=== PATIENT | male | born 1980 | race American Indian/Alaskan Native ===

== ENCOUNTER 2016-10-01 17:11 | Emergency (ER) | payer SELFPAY | END 2016-10-01 17:30 | disposition left against medical advice (07) | LOC: ED 17:11 | DX: R07.89 Other chest pain (principal); Z53.21 Procedure and treatment not carried out due to patient leaving prior to being seen by health care provider | CPT/HCPCS: 93005; 93010 ==

== ENCOUNTER 2016-10-03 12:21 | Emergency (ER) | payer SELFPAY ==
[2016-10-03] MEDS ORDERED: DUONEB 0.5 MG-3 MG/3 ML SOLN IH ONE (13:53)
[2016-10-03 14:17] LABS: Hematocrit 44.2 % (35.5-45.6); Hemoglobin 14.8 gm/dl (11.8-15.2); Mean Corpuscular HGB Conc 34 % (32-34); Mean Corpuscular Hemoglobin 30 pg (28-32); Mean Corpuscular Volume 88 fl (84-94); Platelet Count 208 K/mm3 (140-440); Red Blood Count 5.02 M/mm3 (3.65-5.03); White Blood Count 6.9 K/mm3 (4.5-11.0)
--- NOTE | 2016-10-03 14:19 | XRay Report ---
Single view chest: History: Chest pain. Findings: Normal cardiomediastinal silhouette. Trachea is midline. No consolidation, pneumothorax or pleural effusion. Impression: No acute cardiopulmonary findings.
[2016-10-03 14:28] LABS: Creatine Kinase MB 1.4 ng/mL (0.0-4.0)
[2016-10-03 14:30] LABS: Anion Gap 16 mmol/L; Blood Urea Nitrogen 9 mg/dL (9-20); Calcium 8.3 mg/dL (8.4-10.2); Carbon Dioxide 22 mmol/L (22-30); Chloride 103.9 mmol/L (98-107); Creatine Kinase 268 units/L (55-170); Glucose 90 mg/dL (75-100); Potassium 4.2 mmol/L (3.6-5.0); Sodium 138 mmol/L (137-145)
[2016-10-03 15:04] LABS: Blastocytes % (Manual) 0 %
[2016-10-03 15:05] LABS: Diff Status Complete; RBC Morphology Normal
[2016-10-03] MEDS ORDERED: NACL ONE (16:07)
[2016-10-03] MEDS ORDERED: TORADOL ONE (16:24)
[2016-10-03] MEDS ORDERED: TORADOL IV ONE (16:25)
--- NOTE | 2016-10-03 16:27 | Cat Scan Report ---
CTA chest: History: Chest tightness. Findings: No evidence of aneurysm or pulmonary embolism. No mediastinal mass or adenopathy. No pleural or pericardial effusion. Normal lung parenchyma. No discrete nodularity or consolidation. Impression: No evidence of pulmonary embolism. No acute lung changes.
[2016-10-03 18:29] VITALS: BP 110/74
--- NOTE | 2016-10-03 18:35 | Emergency Department Report ---
Entered by POLA CORONEL, acting as scribe for MAICOL GREEN NP. ED Asthma HPI - General Chief Complaint: Adult Asthma Stated Complaint: ASTHMA Time Seen by Provider: 10/03/16 13:29 Source: patient Mode of arrival: Ambulatory Limitations: No Limitations - History of Present Illness Initial Comments: This is a 35 y/o male that is nontoxic, well nourished in appearance, no acute signs of distress with a PMHx of asthma present to the ED c/o an asthma exacerbation that began 2 days ago. Patient states his symptom began while lying down. Associated intermittent chest tightness, but he denies SOB, numbness and tingling, abdominal pain, nausea, and vomiting. Patient was seen in triage for similar complaint 2 days ago, but eloped. Uses tobacco products daily. NKDA. CHRISTIAN Complaint: "asthma attack", shortness of breath Onset/Timin -: days(s) Asthma History: adult onset Severity: severe (11/28) Context: other (Hx of asthma) Associated Symptoms: chest pain (chest tightness), other (denies SOB, nausea, abdominal pain, numbness, tingling, and nausea) Treatments Prior to Arrival: other (Albuterol) - Related Data Current Asthma Therapy: other (Albuterol) Previous Rx's Medication Instructions Recorded Last Taken Type traMADol [Ultram 50 MG tab] 50 mg PO Q6HR PRN #15 tablet 01/12/14 01/14/14 Rx Acetaminophen/Codeine [Tylenol #3] 1 tab PO BID #7 tablet 07/30/14 08/23/14 Rx Ibuprofen [Motrin] 800 mg PO Q8HR PRN #30 tablet 06/29/16 Unknown Rx ALBUTEROL Inhaler [ProAir HFA 2 puff IH QID PRN #1 inhalation 10/03/16 Unknown Rx Inhaler] predniSONE [Deltasone] 20 mg PO BID #10 tab 10/03/16 Unknown Rx Allergies Allergy/AdvReac Type Severity Reaction Status Date / Time No Known Allergies Allergy Unverified 03/22/13 09:57 ED Review of Systems Comment: All other systems reviewed and negative Constitutional: no symptoms reported. denies: chills, fever, weakness Respiratory: no symptoms reported. denies: cough, orthopnea, shortness of breath, SOB with exertion, SOB at rest, stridor, wheezing Cardiovascular: chest pain (chest tightness). denies: palpitations Endocrine: no symptoms reported Gastrointestinal: denies: abdominal pain, nausea, vomiting Musculoskeletal: denies: back pain Skin: denies: rash, lesions Neurological: denies: headache, weakness, numbness, other (tingling) ED Past Medical Hx - Past Medical History Previous Medical History?: Yes Hx Asthma: Yes Additional medical history: Previous abscess - Surgical History Past Surgical History?: No - Social History Smoking Status: Current Every Day Smoker - Medications Home Medications: Home Medications Medication Instructions Recorded Confirmed Last Taken Type traMADol [Ultram 50 MG tab] 50 mg PO Q6HR PRN #15 tablet 01/12/14 09/13/1401/14 Rx Acetaminophen/Codeine [Tylenol #3] 1 tab PO BID #7 tablet 07/30/14 09/13/1409/02 Rx Ibuprofen [Motrin] 800 mg PO Q8HR PRN #30 tablet 06/29/16 Unknown Rx ALBUTEROL Inhaler [ProAir HFA 2 puff IH QID PRN #1 inhalation 10/03/16 Unknown Rx Inhaler] predniSONE [Deltasone] 20 mg PO BID #10 tab 10/03/16 Unknown Rx ED Physical Exam - General Limitations: No Limitations General appearance: alert, in no apparent distress - Head Head exam: Present: atraumatic, normocephalic - Eye Eye exam: Present: normal appearance, PERRL, EOMI Pupils: Present: normal accommodation - ENT ENT exam: Present: normal exam, normal orophraynx, mucous membranes moist, TM's normal bilaterally, normal external ear exam - Neck Neck exam: Present: normal inspection, full ROM. Absent: tenderness, meningismus, lymphadenopathy - Respiratory Respiratory exam: Present: normal lung sounds bilaterally. Absent: respiratory distress, wheezes, rales, rhonchi, stridor, chest wall tenderness, accessory muscle use, decreased breath sounds, prolonged expiratory, other ( nonreproducible chest tightness) - Cardiovascular Cardiovascular Exam: Present: regular rate, normal rhythm, normal heart sounds. Absent: bradycardia, tachycardia, irregular rhythm, systolic murmur, diastolic murmur, rubs, gallop - GI/Abdominal GI/Abdominal exam: Present: soft, normal bowel sounds. Absent: distended, guarding, rebound, rigid, diminished bowel sounds - Rectal Rectal exam: Present: deferred - Extremities Exam Extremities exam: Present: normal inspection, full ROM, normal capillary refill. Absent: tenderness, pedal edema, joint swelling, calf tenderness - Back Exam Back exam: Present: normal inspection, full ROM. Absent: tenderness, CVA tenderness (R), CVA tenderness (L), muscle spasm, paraspinal tenderness, vertebral tenderness, rash noted - Neurological Exam Neurological exam: Present: alert, oriented X3, CN II-XII intact, normal gait - Psychiatric Psychiatric exam: Present: normal affect, normal mood - Skin Skin exam: Present: warm, dry, intact. Absent: rash ED Course Vital Signs 10/03/16 10/03/16 10/03/16 12:36 15:27 15:45 Temperature 99.2 F Pulse Rate 107 H 87 Respiratory 20 18 Rate Blood Pressure 107/75 O2 Sat by Pulse 98 100 100 Oximetry 10/03/16 16:30 Temperature Pulse Rate Respiratory 16 Rate Blood Pressure O2 Sat by Pulse Oximetry - Reevaluation(s) Reevaluation #1: 10/03/16 15:10 Patient stated chest tightness has subsided after treatment of DuoNeb. Patient is resting well watching TV with no signs of distress. - Consultations Consultation #1: 10/03/16 15:19 Dr. Damon was consulted and examined patient and EKG. Agrees to d/c plan of care with proper f/u with votator machine operator ED Medical Decision Making - Lab Data Result diagrams: 10/03/16 13:58 10/03/16 13:58 - Radiology Data Radiology results: report reviewed - Medical Decision Making Ed course: This is a 35-year-old that presents with asthma exacerbation 1- after my physical exam, pt received an EKG, CBC, Trop, Cardiac CK-MB, CXR. 2- Dr. Damon was consulted and agrees to the plan of care 3- Patient was instructed to f/u with votator machine operator in 24 hours or if symptoms such as shortness of breath, chest pain, numbness, tingling, difficulty breathing, fever, chills, headache, nausea or vomiting report back to emergency room as was possible. 4- at time time of discharge, the patient does not seem toxic or ill in appearance. No acute signs of distress noted. Patient agrees to discharge treatment plan of care. No further questions noted by the patient. 5- patient received albuterol and prednisone at time of discharge. 6- CTA was obtained in the ED. Dictated by Dr. Gentile. Impression; no evidence of pulmonary embolism. No acute lung changes. No evidence of aneurysm or pulmonary embolism. No mediastinal mass or adenopathy. No pleural or pericardial effusion. ED Disposition Clinical Impression: Asthma exacerbation Disposition: DC- TO HOME OR SELFCARE Is pt being admited?: No Does the pt Need Aspirin: No Condition: Stable Instructions: Albuterol (By breathing), Prednisone (By mouth), Asthma (ED) Additional Instructions: Follow-up with a votator machine operator in 24 hours or if symptoms such as shortness of breath, chest pain, numbness, tingling, difficulty breathing, fever, chills, headache, nausea or vomiting report back to emergency room as was possible.] Take prednisone and albuterol as prescribed Follow-up with her primary care doctor in 3-5 days. Prescriptions: ALBUTEROL Inhaler [ProAir HFA Inhaler] 2 puff IH QID PRN #1 inhalation PRN Reason: Shortness Of Breath predniSONE [Deltasone] 20 mg PO BID #10 tab Referrals: PRIMARY CARE, [Primary Care Provider] - 3-5 Days MAKENNA FABIAN MD [Staff Physician] - 3-5 Days [facility] [Outside] - 3-5 Days [facility] [Outside] - 3-5 Days MEGHAN BAKER JR, MD [Staff Physician] - 3-5 Days Forms: Work/School Release Form(ED) This documentation as recorded by the BERNA nguyen JASMINE,accurately reflects the service I personally performed and the decisions made by ,MAICOL GREEN, SILVESTRE.
== END 2016-10-03 18:28 | disposition home or self-care (01) ==
LOC: ED 12:21
DX: J45.901 Unspecified asthma with (acute) exacerbation (principal); F17.210 Nicotine dependence, cigarettes, uncomplicated
CPT/HCPCS: 36415; 71010; 71275; 80048; 82550; 82553; 84484; 85007; 85025; 93005; 93010; 96372; 96374; 99284; J1885; J2920; Q9967

== ENCOUNTER 2017-04-11 14:15 | Emergency (ER) | payer OTHER ==
[2017-04-11] MEDS ORDERED: ZOFRAN IV ONE (15:20)
[2017-04-11] MEDS ORDERED: NACL 0.9% 1000 ML 1,000 ML IV ONE (15:20)
--- NOTE | 2017-04-11 15:21 | Emergency Department Report ---
ED N/V/D HPI - General Chief complaint: Nausea/Vomiting/Diarrhea Stated complaint: GENERAL SICKNESS Time Seen by Provider: 04/11/17 15:19 Source: patient Mode of arrival: Ambulatory Limitations: No Limitations - History of Present Illness Initial comments: 36-year-old male past medical history asthma presents with complaint of nausea and vomiting since last night. Patient states that he ate barbecue chicken wings with his family from a take-out restaurant. States that multiple family members had nausea and vomiting symptoms overnight including himself. Some diarrhea. Denies any bloody vomitus or bloody diarrhea. Denies fevers or chills. States he has diffuse stomach ache. Patient is awake alert and oriented 3 and primarily complaining of nausea. States he has vomited twice since this morning but vomited twice overnight. Denies chest pain shortness of breath or palpitations. MD complaint: nausea, vomiting -: During the night, Last night Description of Vomiting: food contents, watery Associated Abdominal Pain: Yes Location: diffuse Severity: mild Consistency: intermittent Context: possible food poisoning Associated Symptoms: denies other symptoms - Related Data Previous Rx's Medication Instructions Recorded Last Taken Type traMADol [Ultram 50 MG tab] 50 mg PO Q6HR PRN #15 tablet 01/12/14 01/14/14 Rx Acetaminophen/Codeine [Tylenol #3] 1 tab PO BID #7 tablet 07/30/14 08/23/14 Rx Ibuprofen [Motrin] 800 mg PO Q8HR PRN #30 tablet 06/29/16 Unknown Rx ALBUTEROL Inhaler [ProAir HFA 2 puff IH QID PRN #1 inhalation 10/03/16 Unknown Rx Inhaler] predniSONE [Deltasone] 20 mg PO BID #10 tab 10/03/16 Unknown Rx Bismuth Subsalicylate 10 mg PO QID PRN #1 udc 04/11/17 Unknown Rx [Pepto-Bismol] Famotidine [Pepcid] 20 mg PO BID PRN #1 bottle 04/11/17 Unknown Rx Ondansetron [Zofran Odt] 4 mg PO Q8HR PRN #10 tab.rapdis 04/11/17 Unknown Rx Allergies Allergy/AdvReac Type Severity Reaction Status Date / Time No Known Allergies Allergy Verified 04/11/17 14:50 ED Review of Systems ROS: Stated complaint: GENERAL SICKNESS Other details as noted in HPI Constitutional: denies: chills, fever Eyes: denies: eye pain, eye discharge, vision change ENT: denies: ear pain, throat pain Respiratory: denies: cough, shortness of breath, wheezing Cardiovascular: denies: chest pain, palpitations Endocrine: no symptoms reported Gastrointestinal: nausea, vomiting. denies: abdominal pain, diarrhea Genitourinary: denies: urgency, dysuria Musculoskeletal: denies: back pain, joint swelling, arthralgia Skin: denies: rash, lesions Neurological: denies: headache, weakness, paresthesias Psychiatric: denies: anxiety, depression Hematological/Lymphatic: denies: easy bleeding, easy bruising ED Past Medical Hx - Past Medical History Previous Medical History?: Yes Hx Asthma: Yes Additional medical history: Previous abscess - Surgical History Past Surgical History?: No - Social History Smoking Status: Current Every Day Smoker - Medications Home Medications: Home Medications Medication Instructions Recorded Confirmed Last Taken Type traMADol [Ultram 50 MG tab] 50 mg PO Q6HR PRN #15 tablet 01/12/14 09/13/1401/14 Rx Acetaminophen/Codeine [Tylenol #3] 1 tab PO BID #7 tablet 07/30/14 09/13/1409/02 Rx Ibuprofen [Motrin] 800 mg PO Q8HR PRN #30 tablet 06/29/16 Unknown Rx ALBUTEROL Inhaler [ProAir HFA 2 puff IH QID PRN #1 inhalation 10/03/16 Unknown Rx Inhaler] predniSONE [Deltasone] 20 mg PO BID #10 tab 10/03/16 Unknown Rx Bismuth Subsalicylate 10 mg PO QID PRN #1 udc 04/11/17 Unknown Rx [Pepto-Bismol] Famotidine [Pepcid] 20 mg PO BID PRN #1 bottle 04/11/17 Unknown Rx Ondansetron [Zofran Odt] 4 mg PO Q8HR PRN #10 tab.rapdis 04/11/17 Unknown Rx ED Physical Exam - General Limitations: No Limitations General appearance: alert, in no apparent distress - Head Head exam: Present: atraumatic, normocephalic - Eye Eye exam: Present: normal appearance, PERRL, EOMI - ENT ENT exam: Present: mucous membranes moist - Neck Neck exam: Present: normal inspection - Respiratory Respiratory exam: Present: normal lung sounds bilaterally. Absent: respiratory distress - Cardiovascular Cardiovascular Exam: Present: regular rate, normal rhythm. Absent: systolic murmur, diastolic murmur, rubs, gallop - GI/Abdominal GI/Abdominal exam: Present: soft (slight epigastric tenderness on deep palpation negative tenderness at McBurney's point negative iliopsoas and negative Rovsing sign negative Jenkins sign on clinical exam palpation), normal bowel sounds - Rectal Rectal exam: Present: deferred - Extremities Exam Extremities exam: Present: normal inspection - Back Exam Back exam: Present: normal inspection - Neurological Exam Neurological exam: Present: alert, oriented X3, CN II-XII intact, normal gait - Psychiatric Psychiatric exam: Present: normal affect, normal mood - Skin Skin exam: Present: warm, dry, intact, normal color. Absent: rash ED Course Vital Signs 04/11/17 14:50 Temperature 99.6 F Pulse Rate 86 Respiratory 20 Rate Blood Pressure 122/72 O2 Sat by Pulse 99 Oximetry ED Medical Decision Making - Lab Data Result diagrams: 04/11/17 15:47 04/11/17 15:47 - Medical Decision Making A/P: Possible food poisoning, gastroenteritis 1-given patient's history and report symptoms immediately after eating patient likely suffered from acute gastroenteritis secondary to possibly undercooked chicken wings 2-patient feels significantly better with 1 dose of Zofran and IV fluid, now tolerating by mouth fluid and food without difficulty 3-vital signs stable before discharge. Patient's labs are unremarkable including CBC and BMP 2-Jkeii-Kcswrh when necessary, Zofran when necessary, Pepcid when necessary, follow-up with primary care doctor Critical care attestation.: If time is entered above; I have spent that time in minutes in the direct care of this critically ill patient, excluding procedure time. ED Disposition Clinical Impression: Gastroenteritis Disposition: DC-01 TO HOME OR SELFCARE Is pt being admited?: No Does the pt Need Aspirin: No Condition: Stable Instructions: Gastroenteritis (ED), Food Poisoning (ED), Acute Nausea and Vomiting (ED) Prescriptions: Bismuth Subsalicylate [Pepto-Bismol] 10 mg PO QID PRN #1 udc PRN Reason: Indigestion Famotidine [Pepcid] 20 mg PO BID PRN #1 bottle PRN Reason: Indigestion Ondansetron [Zofran Odt] 4 mg PO Q8HR PRN #10 tab.rapdis PRN Reason: Nausea Referrals: [facility] [Outside] - 3-5 Days [facility] [Outside] - 3-5 Days Forms: Work/School Release Form(ED) Time of Disposition: 17:03
[2017-04-11 16:05] LABS: Basophils % (Auto) 0.3 % (0.0-1.8); Eosinophils % (Auto) 0.9 % (0.0-4.3); Hematocrit 43.2 % (35.5-45.6); Mean Corpuscular HGB Conc 35 % (32-34); Mean Corpuscular Hemoglobin 31 pg (28-32); Mean Corpuscular Volume 89 fl (84-94); Platelet Count 174 K/mm3 (140-440); Red Blood Count 4.83 M/mm3 (3.65-5.03); Red Cell Distribution Width 12.6 % (13.2-15.2); White Blood Count 7.7 K/mm3 (4.5-11.0)
[2017-04-11 16:31] LABS: Bilirubin,Urine NEG (Negative); Blood,Urine SM (Negative); Ketones,Urine NEG (Negative); Leukocyte Esterase,Urine NEG (Negative); Nitrite,Urine NEG (Negative); Protein,Urine <15 mg/dL mg/dL (Negative); WBC,Urine < 1.0 /HPF (0.0-6.0)
[2017-04-11 16:32] LABS: Anion Gap 16 mmol/L; BUN/Creatinine Ratio 8; Blood Urea Nitrogen 11 mg/dL (9-20); Calcium 8.1 mg/dL (8.4-10.2); Carbon Dioxide 26 mmol/L (22-30); Chloride 100.1 mmol/L (98-107); Glucose 81 mg/dL (75-100); Sodium 138 mmol/L (137-145)
[2017-04-11 16:36] LABS: Albumin 3.6 g/dL (3.9-5); Bilirubin,Direct 0.2 mg/dL (0-0.2); Bilirubin,Indirect 0.7 mg/dL; Bilirubin,Total 0.9 mg/dL (0.1-1.2); Total Protein 5.4 g/dL (6.3-8.2)
[2017-04-11 17:28] VITALS: BP 101/70
== END 2017-04-11 17:27 | disposition home or self-care (01) ==
LOC: ED 14:15
DX: K52.89 Other specified noninfective gastroenteritis and colitis (principal); J45.909 Unspecified asthma, uncomplicated; F17.200 Nicotine dependence, unspecified, uncomplicated
CPT/HCPCS: 36415; 80048; 80074; 81001; 82140; 82150; 83690; 85025; 96361; 96374; 99283; J2405; J7030

== ENCOUNTER 2018-06-29 16:00 | Emergency (ER) | payer OTHER ==
--- NOTE | 2018-06-29 16:12 | Emergency Department Report ---
Blank Doc - Documentation Documentation: This is a 37-year-old male that presents with right elbow pain. Denies any in juries to trauma. This initial assessment/diagnostic orders/clinical plan/treatment(s) is/are subject to change based on patient's health status, clinical progression and re- assessment by fellow clinical providers in the ED. Further treatment and workup at subsequent clinical providers discretion. Patient/guardians urged not to elope from the ED as their condition may be serious if not clinically assessed and managed. Initial orders include: 1- Patient sent to [facility] for further evaluation and treatment 2- xray
[2018-06-29 16:14] VITALS: BP 130/69
--- NOTE | 2018-06-29 18:18 | XRay Report ---
PROCEDURE: XR ELBOW 3+V RT TECHNIQUE: 3 views of the right elbow. HISTORY: right elbow pain COMPARISONS: No priors FINDINGS: No evidence of acute fracture or dislocation. Alignment is anatomic alignment of the radial head is intact. There is no evidence of hemarthrosis or joint effusion. No erosive or lytic bony changes. IMPRESSION: Normal radiographic appearance of the right elbow.. This document is electronically signed by Benedicto Win MD., June 29 2018 06:16:20 PM ET
[2018-06-29] MEDS ORDERED: IBUPROFEN PO ONE (18:54)
--- NOTE | 2018-06-29 18:58 | Emergency Department Report ---
ED Upper Extremity Inj HPI - General Chief Complaint: Extremity Injury, Upper Stated Complaint: (R) ELBOW PAIN Time Seen by Provider: 06/29/18 16:06 Source: patient Mode of arrival: Ambulatory Limitations: No Limitations - History of Present Illness Initial Comments: This is a 37-year-old -[place] male who presents with right posterior elbow pain for 4 days. Patient states he woke with pain which increased yesterday. He reports pain as 8 out of 10 on pain scale and worse with movement. He denies swelling, injury, numbness or tingling, weakness, paresthesias. MD Complaint: Injury to:: right, elbow Onset/Timin -: days(s) Other Extremity Injury: Elbow: Right Other Injuries: none Handedness: right Place: home Severity scale (0 -10): 8 Improves With: none Worsens With: movement of extremity Associated Symptoms: denies other symptoms - Related Data Previous Rx's Medication Instructions Recorded Last Taken Type traMADol [Ultram 50 MG tab] 50 mg PO Q6HR PRN #15 tablet 01/12/14 01/14/14 Rx Acetaminophen/Codeine [Tylenol #3] 1 tab PO BID #7 tablet 07/30/14 08/23/14 Rx Ibuprofen [Motrin] 800 mg PO Q8HR PRN #30 tablet 06/29/16 Unknown Rx ALBUTEROL Inhaler (OR & NICU) 2 puff IH QID PRN #1 inhalation 10/03/16 Unknown Rx [ProAir HFA Inhaler] predniSONE [Deltasone] 20 mg PO BID #10 tab 10/03/16 Unknown Rx Bismuth Subsalicylate 10 mg PO QID PRN #1 udc 04/11/17 Unknown Rx [Pepto-Bismol] Famotidine [Pepcid] 20 mg PO BID PRN #1 bottle 04/11/17 Unknown Rx Ondansetron [Zofran Odt] 4 mg PO Q8HR PRN #10 tab.rapdis 04/11/17 Unknown Rx Ibuprofen [Motrin 800 MG tab] 800 mg PO Q8HR PRN #15 tablet 06/29/18 Unknown Rx Allergies Allergy/AdvReac Type Severity Reaction Status Date / Time No Known Allergies Allergy Verified 04/11/17 14:50 ED Review of Systems ROS: Stated complaint: (R) ELBOW PAIN Other details as noted in HPI Constitutional: denies: chills, fever Respiratory: denies: cough, shortness of breath, wheezing Cardiovascular: denies: chest pain, palpitations Gastrointestinal: denies: abdominal pain, nausea, diarrhea Musculoskeletal: arthralgia (right elbow pain). denies: back pain, joint swelling Skin: denies: rash, lesions Neurological: denies: headache, weakness, paresthesias Psychiatric: denies: anxiety, depression ED Past Medical Hx - Past Medical History Hx Asthma: Yes Additional medical history: Previous abscess - Surgical History Past Surgical History?: No - Social History Smoking Status: Current Every Day Smoker Substance Use Type: Alcohol, Marijuana - Medications Home Medications: Home Medications Medication Instructions Recorded Confirmed Last Taken Type traMADol [Ultram 50 MG tab] 50 mg PO Q6HR PRN #15 tablet 01/12/14 09/13/14 0 01/14/14 Rx Acetaminophen/Codeine [Tylenol #3] 1 tab PO BID #7 tablet 07/30/14 09/13/14 08/23/14 Rx Ibuprofen [Motrin] 800 mg PO Q8HR PRN #30 tablet 06/29/16 Unknown Rx ALBUTEROL Inhaler (OR & NICU) 2 puff IH QID PRN #1 inhalation 10/03/16 Unknown Rx [ProAir HFA Inhaler] predniSONE [Deltasone] 20 mg PO BID #10 tab 10/03/16 Unknown Rx Bismuth Subsalicylate 10 mg PO QID PRN #1 udc 04/11/17 Unknown Rx [Pepto-Bismol] Famotidine [Pepcid] 20 mg PO BID PRN #1 bottle 04/11/17 Unknown Rx Ondansetron [Zofran Odt] 4 mg PO Q8HR PRN #10 tab.rapdis 04/11/17 Unknown Rx Ibuprofen [Motrin 800 MG tab] 800 mg PO Q8HR PRN #15 tablet 06/29/18 Unknown Rx ED Physical Exam - General Limitations: No Limitations General appearance: alert, in no apparent distress, obese - Respiratory Respiratory exam: Present: normal lung sounds bilaterally. Absent: respiratory distress - Cardiovascular Cardiovascular Exam: Present: regular rate, normal rhythm. Absent: systolic murmur, diastolic murmur, rubs, gallop - GI/Abdominal GI/Abdominal exam: Present: soft, normal bowel sounds - Expanded Upper Extremity Exam Right Shoulder Exam: Present: normal inspection, full ROM Upper Arm exam: Present: normal inspection, full ROM Elbow exam: Present: full ROM (painful range of motion), tenderness (tenderness over the olecranon). Absent: swelling, abrasion, laceration, ecchymosis, deformity, crepidus, dislocation, erythema, effusion, pain w/ pronation/supination, tenderness over radial head Forearm Wrist exam: Present: normal inspection, full ROM Hand Wrist exam: Present: normal inspection, full ROM Neuro motor exam: Present: wrist extension intact, thumb opposition intact, thumb IP flexion intact, thumb adduction intact, fingers 2-5 abduction intact Neurosensory exam: Present: radial nerve intact, ulnar nerve intact, median nerve intact Vascular: Present: normal capillary refill, radial pulse (+2) - Neurological Exam Neurological exam: Present: alert, oriented X3, normal gait - Psychiatric Psychiatric exam: Present: normal affect, normal mood - Skin Skin exam: Present: warm, dry, intact, normal color. Absent: rash ED Course Vital Signs 06/29/18 16:12 Temperature 98.5 F Pulse Rate 68 Respiratory 18 Rate Blood Pressure 130/69 O2 Sat by Pulse 100 Oximetry ED Medical Decision Making - Radiology Data Radiology results: report reviewed PROCEDURE: XR ELBOW 3+V RT TECHNIQUE: 3 views of the right elbow. HISTORY: right elbow pain COMPARISONS: No priors FINDINGS: No evidence of acute fracture or dislocation. Alignment is anatomic alignment of the radial head is intact. There is no evidence of hemarthrosis or joint effusion. No erosive or lytic bony changes. IMPRESSION: Normal radiographic appearance of the right elbow.. - Medical Decision Making Patient was examined by me. Vitals are normal and patient is in no acute di stress. Obtained a x-ray of her right elbow. Dictated by radiologist and no acute findings. Patient informed of results. Muscle strain, Start naproxen for pain. Plan discussed with patient to discharge home and treat outpatient. He agrees with ER plan. Patient discharged home in stable condition. Follow up with PCP in 2-3 days. Critical care attestation.: If time is entered above; I have spent that time in minutes in the direct care of this critically ill patient, excluding procedure time. ED Disposition Clinical Impression: Right elbow pain, Muscle strain Disposition: - TO HOME OR SELFCARE Is pt being admited?: No Does the pt Need Aspirin: No Condition: Stable Instructions: Muscle Strain (ED) Additional Instructions: Rest Use ice or heat on affected area for 20 minutes and off for 2 hours. Take pain medication every 6 hours as needed for pain. Follow up with Primary Care Provider in 2-3 days. Prescriptions: Ibuprofen [Motrin 800 MG tab] 800 mg PO Q8HR PRN #15 tablet PRN Reason: Pain , Severe (7-10) Referrals: VINEET RIZO MD [Primary Care Provider] - 3-5 Days [facility] [Outside] - 3-5 Days [facility] [Outside] - 3-5 Days LUÍS SMITH MD [Staff Physician] - 3-5 Days Forms: Work/School Release Form(ED) Time of Disposition: 19:20
== END 2018-06-29 19:15 | disposition home or self-care (01) ==
LOC: ED 16:00
DX: S46.811A Strain of other muscles, fascia and tendons at shoulder and upper arm level, right arm, initial encounter (principal); J45.909 Unspecified asthma, uncomplicated; F17.200 Nicotine dependence, unspecified, uncomplicated; F12.10 Cannabis abuse, uncomplicated; X58.XXXA Exposure to other specified factors, initial encounter; Y93.89 Activity, other specified; Y92.89 Other specified places as the place of occurrence of the external cause; Y99.8 Other external cause status

== ENCOUNTER 2018-12-04 20:25 | Emergency (ER) | payer SELFPAY ==
--- NOTE | 2018-12-04 20:41 | Event Note ---
ED Screening Note ED Screening Note: CIG THC OCC ETOH HEART BURN HE POINTS TO CHEST COLD MAKES BETTER DIAPHORETIC NAUSEA PMH NONE RX NONE PSH NONE MOM ALIVE CA DAD DEC AMI IN EARLY 40'S This initial assessment/diagnostic orders/clinical plan/treatment(s) is/are subject to change based on patients health status, clinical progression and re- assessment by fellow clinical providers in the ED. Further treatment and workup at subsequent clinical providers discretion. Patient/guardian urged not to elope from the ED as their condition may be serious if not clinically assessed and managed. Initial orders include: RO [facility]
[2018-12-04 21:10] LABS: Mean Corpuscular HGB Conc 36 % (32-34); Mean Corpuscular Volume 88 fl (84-94); Platelet Count 280 K/mm3 (140-440); Red Blood Count 4.74 M/mm3 (3.65-5.03); Red Cell Distribution Width 13.3 % (13.2-15.2)
[2018-12-04 21:21] LABS: Basophils # (Auto) 0.2 K/mm3 (0.0-0.1); Basophils % (Auto) 0.6 % (0.0-1.8); Eosinophils # (Auto) 0.3 K/mm3 (0.0-0.4); Eosinophils % (Auto) 2.3 % (0.0-4.3); Lymphocytes # (Auto) 1.5 K/mm3 (1.2-5.4); Lymphocytes % (Auto) 27.1 % (13.4-35.0); Monocytes # (Auto) 0.8 K/mm3 (0.0-0.8); Monocytes % (Auto) 10.6 % (0.0-7.3)
--- NOTE | 2018-12-04 21:48 | XRay Report ---
CHEST PA AND LATERAL VIEWS INDICATION: chest pain. COMPARISON: None. FINDINGS: Support devices: None. Heart: Within normal limits. Lungs/Pleura: No acute pulmonary or pleural findings. IMPRESSION: 1. No significant abnormality. Signer Name: Hipolito Watt MD Signed: 12/04/2018 9:43 PM Workstation Name: [id number]
[2018-12-04 21:55] LABS: Creatine Kinase MB 2.3 ng/mL (0.0-4.0)
[2018-12-04 21:58] LABS: Alanine Aminotransferase 20 units/L (7-56); Albumin 4.7 g/dL (3.9-5); BUN/Creatinine Ratio 11; Blood Urea Nitrogen 14 mg/dL (9-20); Calcium 9.2 mg/dL (8.4-10.2); Hemolysis Index 14
--- NOTE | 2018-12-05 00:53 | Emergency Department Report ---
ED Chest Pain HPI - General Chief Complaint: Chest Pain Stated Complaint: CHEST PAIN Time Seen by Provider: 12/04/18 20:39 Source: patient, RN notes reviewed Mode of arrival: Ambulatory Limitations: No Limitations - History of Present Illness Initial Comments: This is a pleasant 38-year-old gentleman. The patient is not known to this provider previously. The patient states he does not have a primary care doctor. His past medical history includes tobacco consumption, recreational cocaine consumption. The patient presents to the ER with a complaint of nontraumatic central and left-sided chest pain. The pain has been present for 4 days. It is i ntermittent. It radiates to the left arm. It worsens when he eats. It otherwise does not have any exacerbating or relieving factors. He endorses a chronic cough, nonproductive, recent cocaine use, positive nausea, vomiting. No recent aspirin use, no recent DVT or pulmonary embolus risk factors. He is not homicidal, he is not suicidal. He is right-hand dominant. He denies recent trauma and he denies repetitive range of motion. He denies a family history of heart disease, and DVT, pulmonary embolus risk factors. He denies diaphoresis and exertional shortness of breath. MD Complaint: chest pain -: Gradual, days(s) Pain Location: left chest Pain Radiation: LUE Severity: moderate Quality: other Improves With: other Worsens With: other Context: other Aspirin use within the Past 7 Days: (0) No - Related Data On Oral Contraceptives: No Previous Rx's Medication Instructions Recorded Last Taken Type traMADol [Ultram 50 MG tab] 50 mg PO Q6HR PRN #15 tablet 01/12/14 01/14/14 Rx Acetaminophen/Codeine [Tylenol #3] 1 tab PO BID #7 tablet 07/30/14 08/23/14 Rx Ibuprofen [Motrin] 800 mg PO Q8HR PRN #30 tablet 06/29/16 Unknown Rx ALBUTEROL Inhaler (OR & NICU) 2 puff IH QID PRN #1 inhalation 10/03/16 Unknown Rx [ProAir HFA Inhaler] predniSONE [Deltasone] 20 mg PO BID #10 tab 10/03/16 Unknown Rx Bismuth Subsalicylate 10 mg PO QID PRN #1 udc 04/11/17 Unknown Rx [Pepto-Bismol] Famotidine [Pepcid] 20 mg PO BID PRN #1 bottle 04/11/17 Unknown Rx Ondansetron [Zofran Odt] 4 mg PO Q8HR PRN #10 tab.rapdis 04/11/17 Unknown Rx Ibuprofen [Motrin 800 MG tab] 800 mg PO Q8HR PRN #15 tablet 06/29/18 Unknown Rx Aspirin [Aspirin BABY CHEW TAB] 81 mg PO QDAY #30 tab.chew 12/05/18 Unknown Rx Famotidine [Pepcid] 20 mg PO BID #30 tablet 12/05/18 Unknown Rx Ondansetron [Zofran Odt] 4 mg PO Q8HR PRN #20 tab.rapdis 12/05/18 Unknown Rx Allergies Allergy/AdvReac Type Severity Reaction Status Date / Time No Known Allergies Allergy Verified 04/11/17 14:50 Heart Score - HEART Score History: Slightly suspicious EKG: Non-specific Age: < 45 Risk factors: 1-2 risk factors Troponin: < normal limit HEART Score: 2 - Critical Actions Critical Actions: 0-3 pts:0.9-1.7%risk of adverse cardiac event.Candidate for discharge ED Review of Systems ROS: Stated complaint: CHEST PAIN Other details as noted in HPI Constitutional: denies: fever Eyes: denies: eye discharge ENT: denies: congestion Respiratory: cough Cardiovascular: chest pain Gastrointestinal: nausea, vomiting Genitourinary: denies: dysuria Musculoskeletal: arthralgia, myalgia Skin: denies: lesions Neurological: denies: weakness Psychiatric: anxiety Hematological/Lymphatic: denies: easy bleeding ED Past Medical Hx - Past Medical History Previous Medical History?: Yes Hx Asthma: Yes Additional medical history: Previous abscess - Surgical History Past Surgical History?: No - Social History Smoking Status: Never Smoker Substance Use Type: Alcohol, Marijuana - Medications Home Medications: Home Medications Medication Instructions Recorded Confirmed Last Taken Type traMADol [Ultram 50 MG tab] 50 mg PO Q6HR PRN #15 tablet 01/12/14 09/13/14 01/14/14 Rx Acetaminophen/Codeine [Tylenol #3] 1 tab PO BID #7 tablet 07/30/14 09/13/14 08/23/14 Rx Ibuprofen [Motrin] 800 mg PO Q8HR PRN #30 tablet 06/29/16 Unknown Rx ALBUTEROL Inhaler (OR & NICU) 2 puff IH QID PRN #1 inhalation 10/03/16 Unknown Rx [ProAir HFA Inhaler] predniSONE [Deltasone] 20 mg PO BID #10 tab 10/03/16 Unknown Rx Bismuth Subsalicylate 10 mg PO QID PRN #1 udc 04/11/17 Unknown Rx [Pepto-Bismol] Famotidine [Pepcid] 20 mg PO BID PRN #1 bottle 04/11/17 Unknown Rx Ondansetron [Zofran Odt] 4 mg PO Q8HR PRN #10 tab.rapdis 04/11/17 Unknown Rx Ibuprofen [Motrin 800 MG tab] 800 mg PO Q8HR PRN #15 tablet 06/29/18 Unknown Rx Aspirin [Aspirin BABY CHEW TAB] 81 mg PO QDAY #30 tab.chew 12/05/18 Unknown Rx Famotidine [Pepcid] 20 mg PO BID #30 tablet 12/05/18 Unknown Rx Ondansetron [Zofran Odt] 4 mg PO Q8HR PRN #20 tab.rapdis 12/05/18 Unknown Rx ED Physical Exam - General Limitations: No Limitations General appearance: alert, in no apparent distress - Head Head exam: Present: atraumatic, normocephalic - Eye Eye exam: Present: normal appearance, EOMI. Absent: nystagmus - ENT ENT exam: Present: normal exam, normal orophraynx, mucous membranes moist, normal external ear exam - Neck Neck exam: Present: normal inspection, full ROM. Absent: tenderness, me ningismus - Respiratory Respiratory exam: Present: normal lung sounds bilaterally. Absent: respiratory distress, wheezes, rales, rhonchi, stridor - Cardiovascular Cardiovascular Exam: Present: regular rate, normal rhythm, normal heart sounds. Absent: bradycardia, tachycardia, irregular rhythm, systolic murmur, diastolic murmur, rubs, gallop - GI/Abdominal GI/Abdominal exam: Present: soft. Absent: distended, tenderness, guarding, rebound, rigid, pulsatile mass - Rectal Rectal exam: Present: deferred - Extremities Exam Extremities exam: Present: normal inspection, full ROM, other (2+ pulses noted in the bilateral upper, lower extremities. Compartments soft. No long bony tenderness. The pelvis is stable.). Absent: pedal edema, joint swelling, calf tenderness - Back Exam Back exam: Present: normal inspection, full ROM. Absent: tenderness, CVA tenderness (R), CVA tenderness (L), paraspinal tenderness, vertebral tenderness - Neurological Exam Neurological exam: Present: alert, oriented X3, normal gait, other (Extraocular movements intact. Tongue midline. No facial droop. Facial sensation intact to light touch in the V1, V2, V3 distribution bilaterally. 5 and 5 strength in 4 extremities.. Sensation is intact to light touch in 4 extremities.). Absent: motor sensory deficit - Psychiatric Psychiatric exam: Present: normal affect, normal mood - Skin Skin exam: Present: warm, dry, intact, normal color. Absent: rash ED Course Vital Signs 12/04/18 12/05/18 20:39 01:02 Temperature 98.8 F 98.3 F Pulse Rate 89 78 Respiratory 18 20 Rate Blood Pressure 140/69 Blood Pressure 119/72 [Left] O2 Sat by Pulse 98 98 Oximetry NICHOLAS score - Nicholas Score Age > 65: (0) No Aspirin use within the Past 7 Days: (0) No 3 or more CAD Risk Factors: (0) No 2 or more Angina events in past 24 hrs: (0) No Known CAD with more than 50% Stenosis: (0) No Elevated Cardiac Markers: (0) No ST Deviation Greater than 0.5mm: (0) No NICHOLAS Score: 0 ED Medical Decision Making - Lab Data Result diagrams: 12/04/18 20:49 12/04/18 20:49 Vital Signs 12/04/18 12/05/18 20:39 01:02 Temperature 98.8 F 98.3 F Pulse Rate 89 78 Respiratory 18 20 Rate Blood Pressure 140/69 Blood Pressure 119/72 [Left] O2 Sat by Pulse 98 98 Oximetry Lab Results 12/04/18 12/04/18 12/04/18 Range/Units 20:49 20:49 20:49 WBC 9.5 (4.5-11.0) K/mm3 RBC 4.74 (3.65-5.03) M/mm3 Hgb 15.0 (11.8-15.2) gm/dl Hct 42.0 (35.5-45.6) % MCV 88 (84-94) fl MCH 32 (28-32) pg MCHC 36 H (32-34) % RDW 13.3 (13.2-15.2) % Plt Count 280 (140-440) K/mm3 Lymph % (Auto) 27.1 (13.4-35.0) % Sequoyah % (Auto) 10.6 H (0.0-7.3) % Eos % (Auto) 2.3 (0.0-4.3) % Baso % (Auto) 0.6 (0.0-1.8) % Lymph # 1.5 (1.2-5.4) K/mm3 Sequoyah # 0.8 (0.0-0.8) K/mm3 Eos # 0.3 (0.0-0.4) K/mm3 Baso # 0.2 H (0.0-0.1) K/mm3 Seg Neutrophils % 59.4 (40.0-70.0) % Seg Neutrophils # 5.6 (1.8-7.7) K/mm3 Sodium 139 (137-145) mmol/L Potassium 4.0 (3.6-5.0) mmol/L Chloride 100.1 (98-107) mmol/L Carbon Dioxide 26 (22-30) mmol/L Anion Gap 17 mmol/L BUN 14 (9-20) mg/dL Creatinine 1.3 (0.8-1.5) mg/dL Estimated GFR > 60 ml/min BUN/Creatinine Ratio 11 % Glucose 117 H (75-100) mg/dL Calcium 9.2 (8.4-10.2) mg/dL Total Bilirubin 0.50 (0.1-1.2) mg/dL AST 18 (5-40) units/L ALT 20 (7-56) units/L Alkaline Phosphatase 77 (35-129) units/L Total Creatine Kinase 303 H (55-170) units/L CK-MB (CK-2) 2.3 (0.0-4.0) ng/mL CK-MB (CK-2) Rel Index 0.7 (0-4) Troponin T < 0.010 (0.00-0.029) ng/mL NT-Pro-B Natriuret Pep 8.79 (0-450) pg/mL Total Protein 8.0 (6.3-8.2) g/dL Albumin 4.7 (3.9-5) g/dL Albumin/Globulin Ratio 1.4 % 12/04/18 Range/Units 23:21 WBC (4.5-11.0) K/mm3 RBC (3.65-5.03) M/mm3 Hgb (11.8-15.2) gm/dl Hct (35.5-45.6) % MCV (84-94) fl MCH (28-32) pg MCHC (32-34) % RDW (13.2-15.2) % Plt Count (140-440) K/mm3 Lymph % (Auto) (13.4-35.0) % [place] % (Auto) (0.0-7.3) % Eos % (Auto) (0.0-4.3) % Baso % (Auto) (0.0-1.8) % Lymph # (1.2-5.4) K/mm3 [place]ah # (0.0-0.8) K/mm3 Eos # (0.0-0.4) K/mm3 Baso # (0.0-0.1) K/mm3 Seg Neutrophils % (40.0-70.0) % Seg Neutrophils # (1.8-7.7) K/mm3 Sodium (137-145) mmol/L Potassium (3.6-5.0) mmol/L Chloride (98-107) mmol/L Carbon Dioxide (22-30) mmol/L Anion Gap mmol/L BUN (9-20) mg/dL Creatinine (0.8-1.5) mg/dL Estimated GFR ml/min BUN/Creatinine Ratio % Glucose (75-100) mg/dL Calcium (8.4-10.2) mg/dL Total Bilirubin (0.1-1.2) mg/dL AST (5-40) units/L ALT (7-56) units/L Alkaline Phosphatase (35-129) units/L Total Creatine Kinase (55-170) units/L CK-MB (CK-2) (0.0-4.0) ng/mL CK-MB (CK-2) Rel Index (0-4) Troponin T < 0.010 (0.00-0.029) ng/mL NT-Pro-B Natriuret Pep (0-450) pg/mL Total Protein (6.3-8.2) g/dL Albumin (3.9-5) g/dL Albumin/Globulin Ratio % - EKG Data -: EKG Interpreted by Ri EKG shows normal: sinus rhythm Rate: normal - EKG Data 12/05/18 01:42 EKG #1 shows normal sinus, 89 bpm, normal axis, QTC within normal limits, high left ventricular voltage, nonspecific ST abnormalities, the EKG is not consistent with ST elevation myocardial infarction. It is unchanged from prior EKG in September 2016 EKG #2 appears to be unchanged from prior, with the exception of borderline prolonged IL interval. Neither EKG consistent with ST elevation myocardial infarction. - Radiology Data Radiology results: report reviewed, image reviewed Print Report Referring Physician: MARCIO GONCALVES Patient Name: CAMILLE HARRIS Date of : 1980 Sex: Male Report Date: 2018-12-04 Report Status: Finalized Findings [address] [address] XRay Report Signed Patient: CAMILLE HARRIS MR#: [id number] 37 : 1980 Acct:[id number] Age/Sex: 38 / M ADM Date: 12/04/18 Loc: ED Attending Dr: Ordering Physician: MARCIO GONCALVES Date of Service: 12/04/18 Procedure(s): XR chest routine 2V Accession Number(s): [id number] cc: MARCIO GONCALVES Fluoro Time In Minutes: CHEST PA AND LATERAL VIEWS INDICATION: chest pain. COMPARISON: None. FINDINGS: Support devices: None. Heart: Within normal limits. Lungs/Pleura: No acute pulmonary or pleural findings. IMPRESSION: 1. No significant abnormality. Signer Name: Hipolito Watt MD Signed: 12/04/2018 9:43 PM Workstation Name: [id number] Transcribed By: ALLEN Dictated By: Hipolito Watt MD Electronically Authenticated By: Hipolito Watt MD Signed Date/Time: 12/04/182142 DD/ 42 - Medical Decision Making Differential diagnosis, including but not limited to: GERD, gastritis, hiatal hernia, pneumonia, acute coronary syndrome, vasospasm, costochondritis, cervical radiculopathy Assessment and plan: 38-year-old gentleman with nontraumatic left-sided chest pain, after eating, not tachycardic, not hypoxic, no pulmonary embolism or DVT risk factors, low risk by well's criteria, perc negative. Patient low risk for major adverse cardiac event as per the heart score, troponin negative 2, EKG unchanged 2, x-ray of the chest unremarkable. Patient has equal pulses in upper, lower extremities, x-ray of the chest is unremarkable, therefore aortic disease is unlikely. Patient reassessed multiple times while in his room, he is counseled to not use cocaine, counseled to stop smoking cigarettes, and counseled to engage in diet and lifestyle modification. He'll need to follow up with outpatient primary care doctor or senior clinical study manager. He has a GCS of 15, with an NIH score of 0 at this time, no focal motor or sensory deficits that are elicited on his examination, and he is suitable to follow up with outpatient physician. Critical care attestation.: If time is entered above; I have spent that time in minutes in the direct care of this critically ill patient, excluding procedure time. ED Disposition Clinical Impression: Chest pain Disposition: DC-01 TO HOME OR SELFCARE Is pt being admited?: No Does the pt Need Aspirin: No Condition: Stable Instructions: Chest Pain (ED) Additional Instructions: Avoid consumption of Motrin, ibuprofen, Naprosyn, Aleve, heavy, spicy food. Recommend patient discontinued tobacco consumption, stop using cocaine. Recommend patient participate in diet as recommended, avoid consumption of sweet foods, simple carbohydrates, sugary drinks. Patient should consume lean prote in, and plenty of fiber and vegetables. Recommend patient follow up with a primary care doctor or senior clinical study manager within the next 5 days. Return to the emergency room right away with new, worsening or different symptoms, or symptoms not present on the initial emergency room evaluation. Patient may participate in physical activities as he can tolerate. Referrals: VINEET RIZO MD [Primary Care Provider] - 3-5 Days MAKENNA FABIAN MD [Staff Physician] - 3-5 Days JOLENE CAN MD [Staff Physician] - 3-5 Days
[2018-12-05 01:05] VITALS: BP 119/72
[2018-12-05] MEDS ORDERED: TYLENOL PO ONE (01:38)
[2018-12-05] MEDS ORDERED: CARAFATE PO ONE (01:38)
[2018-12-05] MEDS ORDERED: PEPCID PO ONE (01:38)
== END 2018-12-05 02:00 | disposition home or self-care (01) ==
LOC: ED 20:25
DX: R07.89 Other chest pain (principal); R11.2 Nausea with vomiting, unspecified; R05 Cough
CPT/HCPCS: 36415; 71046; 80053; 82550; 82553; 83880; 84484; 85025; 93005; 93010

== ENCOUNTER 2019-02-26 13:47 | Emergency (ER) | payer SELFPAY ==
[2019-02-26 14:19] VITALS: BP 125/77
[2019-02-26 15:06] LABS: Hematocrit 39.6 % (35.5-45.6); Hemoglobin 13.6 gm/dl (11.8-15.2); Mean Corpuscular HGB Conc 34 % (32-34); Mean Corpuscular Volume 89 fl (84-94); Platelet Count 242 K/mm3 (140-440); Red Blood Count 4.44 M/mm3 (3.65-5.03); Red Cell Distribution Width 12.9 % (13.2-15.2)
[2019-02-26 15:29] LABS: Alanine Aminotransferase 19 units/L (7-56); Albumin 4.4 g/dL (3.9-5); BUN/Creatinine Ratio 11; Blood Urea Nitrogen 16 mg/dL (9-20); Hemolysis Index 16
[2019-02-26 15:47] LABS: Basophils % (Manual) 0 % (0.0-1.8); Total Cells Counted 100
[2019-02-26 15:48] LABS: Anisocytosis 1+
[2019-02-26] MEDS ORDERED: MORPHINE 4 MG/1 ML INJ IV ONE (16:12)
[2019-02-26] MEDS ORDERED: ONDANSETRON 4 MG/2 ML INJ IV ONE (16:12)
[2019-02-26] MEDS ORDERED: KETOROLAC 30 MG/1 ML INJ IV ONE (16:12)
--- NOTE | 2019-02-26 16:18 | Emergency Department Report ---
ED Abdominal Pain HPI - General Chief Complaint: Abdominal Pain Stated Complaint: CONSTIPATION/ABD PAIN Time Seen by Provider: 02/26/19 16:04 Source: patient Mode of arrival: Ambulatory Limitations: No Limitations - History of Present Illness Initial Comments: 38-year-old -[place] male patient without significant past medical history presents with complaints of left lower abdominal pain for the past 2 days. He denies history of diverticulosis, constipation, hematochezia, melena, nausea/vomiting, or dysuria. He does admit to increased urinary frequency. Denies history of kidney stones. He states the pain radiates to his left flank and ranks the pain at a 10/10 in severity. MD Complaint: abdominal pain Location: LLQ Radiation: L flank Severity scale (0 -10): 5 Quality: stabbing Consistency: constant Improves With: nothing Worsens With: nothing - Related Data Previous Rx's Medication Instructions Recorded Last Taken Type traMADol [Ultram 50 MG tab] 50 mg PO Q6HR PRN #15 tablet 01/12/14 01/14/14 Rx Acetaminophen/Codeine [Tylenol #3] 1 tab PO BID #7 tablet 07/30/14 08/23/14 Rx Ibuprofen [Motrin] 800 mg PO Q8HR PRN #30 tablet 06/29/16 Unknown Rx ALBUTEROL Inhaler (OR & NICU) 2 puff IH QID PRN #1 inhalation 10/03/16 Unknown Rx [ProAir HFA Inhaler] predniSONE [Deltasone] 20 mg PO BID #10 tab 10/03/16 Unknown Rx Bismuth Subsalicylate 10 mg PO QID PRN #1 udc 04/11/17 Unknown Rx [Pepto-Bismol] Famotidine [Pepcid] 20 mg PO BID PRN #1 bottle 04/11/17 Unknown Rx Ondansetron [Zofran Odt] 4 mg PO Q8HR PRN #10 tab.rapdis 04/11/17 Unknown Rx Ibuprofen [Motrin 800 MG tab] 800 mg PO Q8HR PRN #15 tablet 06/29/18 Unknown Rx Aspirin [Aspirin BABY CHEW TAB] 81 mg PO QDAY #30 tab.chew 12/05/18 Unknown Rx Famotidine [Pepcid] 20 mg PO BID #30 tablet 12/05/18 Unknown Rx Ondansetron [Zofran Odt] 4 mg PO Q8HR PRN #20 tab.rapdis 12/05/18 Unknown Rx Acetaminophen/Codeine [Tylenol 1 tab PO Q6H PRN #10 tab 02/26/19 Unknown Rx /Codeine # 3 tab] Ciprofloxacin HCl [Ciprofloxacin 500 mg PO Q12HR 10 Days #20 tab 02/26/19 Unknown Rx TAB] metroNIDAZOLE [Flagyl TAB] 500 mg PO Q8H 10 Days #30 tab 02/26/19 Unknown Rx Allergies Allergy/AdvReac Type Severity Reaction Status Date / Time No Known Allergies Allergy Verified 04/11/17 14:50 ED Review of Systems ROS: Stated complaint: CONSTIPATION/ABD PAIN Other details as noted in HPI Eyes: denies: vision change ENT: denies: throat pain Respiratory: denies: cough, orthopnea, shortness of breath Cardiovascular: denies: chest pain Gastrointestinal: abdominal pain. denies: nausea, vomiting, diarrhea, constipation, hematemesis, melena, hematochezia Genitourinary: frequency. denies: urgency, dysuria, hematuria Musculoskeletal: denies: back pain, myalgia Skin: denies: rash, lesions Neurological: denies: headache, weakness, paresthesias Psychiatric: denies: anxiety, depression ED Past Medical Hx - Past Medical History Hx Asthma: Yes Additional medical history: Previous abscess - Surgical History Past Surgical History?: No - Social History Smoking Status: Current Every Day Smoker Substance Use Type: None - Medications Home Medications: Home Medications Medication Instructions Recorded Confirmed Last Taken Type traMADol [Ultram 50 MG tab] 50 mg PO Q6HR PRN #15 tablet 01/12/14 09/13/14 01/14/14 Rx Acetaminophen/Codeine [Tylenol #3] 1 tab PO BID #7 tablet 07/30/14 09/13/14 08/23/14 Rx Ibuprofen [Motrin] 800 mg PO Q8HR PRN #30 tablet 06/29/16 Unknown Rx ALBUTEROL Inhaler (OR & NICU) 2 puff IH QID PRN #1 inhalation 10/03/16 Unknown Rx [ProAir HFA Inhaler] predniSONE [Deltasone] 20 mg PO BID #10 tab 10/03/16 Unknown Rx Bismuth Subsalicylate 10 mg PO QID PRN #1 udc 04/11/17 Unknown Rx [Pepto-Bismol] Famotidine [Pepcid] 20 mg PO BID PRN #1 bottle 04/11/17 Unknown Rx Ondansetron [Zofran Odt] 4 mg PO Q8HR PRN #10 tab.rapdis 04/11/17 Unknown Rx Ibuprofen [Motrin 800 MG tab] 800 mg PO Q8HR PRN #15 tablet 06/29/18 Unknown Rx Aspirin [Aspirin BABY CHEW TAB] 81 mg PO QDAY #30 tab.chew 12/05/18 Unknown Rx Famotidine [Pepcid] 20 mg PO BID #30 tablet 12/05/18 Unknown Rx Ondansetron [Zofran Odt] 4 mg PO Q8HR PRN #20 tab.rapdis 12/05/18 Unknown Rx Acetaminophen/Codeine [Tylenol 1 tab PO Q6H PRN #10 tab 02/26/19 Unknown Rx /Codeine # 3 tab] Ciprofloxacin HCl [Ciprofloxacin 500 mg PO Q12HR 10 Days #20 tab 02/26/19 Unknown Rx TAB] metroNIDAZOLE [Flagyl TAB] 500 mg PO Q8H 10 Days #30 tab 02/26/19 Unknown Rx ED Physical Exam - General Limitations: No Limitations General appearance: alert, in no apparent distress (patient does appear to be uncomfortable) - Head Head exam: Present: atraumatic, normocephalic - Eye Eye exam: Present: normal appearance. Absent: scleral icterus - ENT ENT exam: Present: mucous membranes moist - Neck Neck exam: Present: full ROM - Respiratory Respiratory exam: Present: normal lung sounds bilaterally. Absent: respiratory distress - Cardiovascular Cardiovascular Exam: Present: regular rate, normal rhythm - GI/Abdominal GI/Abdominal exam: Present: soft, tenderness (left sided), guarding, normal bowel sounds. Absent: distended, rebound, rigid - Rectal Rectal exam: Present: deferred - Extremities Exam Extremities exam: Present: normal inspection - Back Exam Back exam: Present: CVA tenderness (L) - Neurological Exam Neurological exam: Present: alert, oriented X3 ED Course Vital Signs 02/26/19 02/26/19 02/26/19 14:16 16:28 16:30 Temperature 98.6 F Pulse Rate 87 Respiratory 18 18 18 Rate Blood Pressure 125/77 Blood Pressure 125/77 [Right] O2 Sat by Pulse 100 Oximetry ED Medical Decision Making - Lab Data Result diagrams: 02/26/19 14:49 02/26/19 14:49 Lab Results 02/26/19 02/26/19 02/26/19 Range/Units 14:49 14:49 17:15 WBC 7.2 (4.5-11.0) K/mm3 RBC 4.44 (3.65-5.03) M/mm3 Hgb 13.6 (11.8-15.2) gm/dl Hct 39.6 (35.5-45.6) % MCV 89 (84-94) fl MCH 31 (28-32) pg MCHC 34 (32-34) % RDW 12.9 L (13.2-15.2) % Plt Count 242 (140-440) K/mm3 [place] % (Auto) Ethnographic Materials Conservator Add Manual Diff Complete Total Counted 100 Seg Neuts % (Manual) 59.0 (40.0-70.0) % Band Neutrophils % 0 % Lymphocytes % (Manual) 28.0 (13.4-35.0) % Reactive Lymphs % (Man) 0 % Monocytes % (Manual) 12.0 H (0.0-7.3) % Eosinophils % (Manual) 1.0 (0.0-4.3) % Basophils % (Manual) 0 (0.0-1.8) % Metamyelocytes % 0 % Myelocytes % 0 % Promyelocytes % 0 % Blast Cells % 0 % Nucleated RBC % Not Reportable Seg Neutrophils # Man 4.2 (1.8-7.7) K/mm3 Band Neutrophils # 0.0 K/mm3 Lymphocytes # (Manual) 2.0 (1.2-5.4) K/mm3 Abs React Lymphs (Man) 0.0 K/mm3 Monocytes # (Manual) 0.9 H (0.0-0.8) K/mm3 Eosinophils # (Manual) 0.1 (0.0-0.4) K/mm3 Basophils # (Manual) 0.0 (0.0-0.1) K/mm3 Metamyelocytes # 0.0 K/mm3 Myelocytes # 0.0 K/mm3 Promyelocytes # 0.0 K/mm3 Blast Cells # 0.0 K/mm3 WBC Morphology Not Reportable Hypersegmented Neuts Not Reportable Hyposegmented Neuts Not Reportable Hypogranular Neuts Not Reportable Smudge Cells Not Reportable Toxic Granulation Not Reportable Toxic Vacuolation Not Reportable Dohle Bodies Not Reportable Pelger-Huet Anomaly Not Reportable Jason Rods Not Reportable Platelet Estimate Appears normal Clumped Platelets Not Reportable Plt Clumps, EDTA Not Reportable Large Platelets Not Reportable Giant Platelets Not Reportable Platelet Satelliting Not Reportable Plt Morphology Comment Not Reportable RBC Morphology Not Reportable Dimorphic RBCs Not Reportable Polychromasia Not Reportable Hypochromasia Not Reportable Poikilocytosis Not Reportable Anisocytosis 1+ Microcytosis Not Reportable Macrocytosis Not Reportable Spherocytes Not Reportable Pappenheimer Bodies Not Reportable Sickle Cells Not Reportable Target Cells Not Reportable Tear Drop Cells Not Reportable Ovalocytes Not Reportable Helmet Cells Not Reportable [place] Bodies Not Reportable [place] Rings Not Reportable Angel Cells Not Reportable Bite Cells Not Reportable Crenated Cell Not Reportable Elliptocytes Not Reportable Acanthocytes (Spur) Not Reportable Rouleaux Not Reportable Hemoglobin C Crystals Not Reportable Schistocytes Not Reportable Malaria parasites Not Reportable Parrish Bodies Not Reportable Hem Pathologist Commnt No Sodium 139 (137-145) mmol/L Potassium 3.9 (3.6-5.0) mmol/L Chloride 104.1 (98-107) mmol/L Carbon Dioxide 21 L (22-30) mmol/L Anion Gap 18 mmol/L BUN 16 (9-20) mg/dL Creatinine 1.4 (0.8-1.5) mg/dL Estimated GFR > 60 ml/min BUN/Creatinine Ratio 11 % Glucose 109 H (75-100) mg/dL Calcium 9.0 (8.4-10.2) mg/dL Total Bilirubin 0.50 (0.1-1.2) mg/dL AST 18 (5-40) units/L ALT 19 (7-56) units/L Alkaline Phosphatase 91 (35-129) units/L Total Protein 7.7 (6.3-8.2) g/dL Albumin 4.4 (3.9-5) g/dL Albumin/Globulin Ratio 1.3 % Urine Color Yellow (Yellow) Urine Turbidity Clear (Clear) Urine pH 6.0 (5.0-7.0) Ur Specific [place] 1.014 (1.003-1.030) Urine Protein <15 mg/dl (Negative) mg/dL Urine Glucose (UA) Neg (Negative) mg/dL Urine Ketones Neg (Negative) mg/dL Urine Blood Mod (Negative) Urine Nitrite Neg (Negative) Urine Bilirubin Neg (Negative) Urine Urobilinogen < 2.0 (<2.0) mg/dL Ur Leukocyte Esterase Neg (Negative) Urine WBC (Auto) < 1.0 (0.0-6.0) /HPF Urine RBC (Auto) 1.0 (0.0-6.0) /HPF - Radiology Data Radiology results: report reviewed CT ABDOMEN AND PELVIS WITHOUT CONTRAST INDICATION / CLINICAL INFORMATION: left flank and LLQ pain. TECHNIQUE: Axial CT images were obtained through the abdomen and pelvis without IV contrast. All CT scans at this location are performed using CT dose reduction for ALARA by means of automated exposure control. COMPARISON: CT dated 07/30/2014 FINDINGS: LOWER CHEST: No significant abnormality. LIVER: No significant abnormality. GALLBLADDER: No significant abnormality. BILE DUCTS: No significant abnormality. PANCREAS: No significant abnormality. SPLEEN: No significant abnormality. ADRENALS: No significant abnormality. RIGHT KIDNEY and URETER: Persistent 2 cm right renal cyst is present LEFT KIDNEY and URETER: No significant abnormality. STOMACH and SMALL BOWEL: No significant abnormality. COLON: Mild diverticulosis of the descending colon sigmoid colon with a focal area of diverticulitis involving the mid descending colon. APPENDIX: No significant abnormality. PERITONEUM: No free fluid. No free air. No fluid collection. LYMPH NODES: No significant adenopathy. AORTA and ARTERIES: No significant abnormality. IVC and VEINS: No significant abnormality. URINARY BLADDER: No significant abnormality. REPRODUCTIVE ORGANS: No significant abnormality. ADDITIONAL FINDINGS: None. SKELETAL SYSTEM: No significant abnormality. IMPRESSION: 1. Diverticulitis descending colon - Medical Decision Making 38-year-old male patient presents with complaints of left lower abdominal pain. CT abdomen shows diverticulitis that is mild. Patient denies any hematochezia. WBCs are normal. Vitals are normal. Will treat outpatient with Cipro and Flagyl with GI follow-up. Discussed strict return precautions in great detail with patient who states understanding. Critical care attestation.: If time is entered above; I have spent that time in minutes in the direct care of this critically ill patient, excluding procedure time. ED Disposition Clinical Impression: Diverticulitis Disposition: DC-01 TO HOME OR SELFCARE Is pt being admited?: No Condition: Stable Instructions: Diverticulitis (ED) Prescriptions: Ciprofloxacin HCl [Ciprofloxacin TAB] 500 mg PO Q12HR 10 Days #20 tab metroNIDAZOLE [Flagyl TAB] 500 mg PO Q8H 10 Days #30 tab Acetaminophen/Codeine [Tylenol /Codeine # 3 tab] 1 tab PO Q6H PRN #10 tab PRN Reason: Pain , Severe (7-10) Referrals: [facility] [Provider Group] - 2-3 Days
[2019-02-26 17:27] LABS: Bilirubin,Urine NEG (Negative); Blood,Urine MOD (Negative); Color,Urine Yellow (Yellow); Protein,Urine <15 mg/dL mg/dL (Negative); Urobilinogen,Urine < 2.0 mg/dL (<2.0); WBC,Urine < 1.0 /HPF (0.0-6.0)
--- NOTE | 2019-02-26 17:47 | Cat Scan Report ---
CT ABDOMEN AND PELVIS WITHOUT CONTRAST INDICATION / CLINICAL INFORMATION: left flank and LLQ pain. TECHNIQUE: Axial CT images were obtained through the abdomen and pelvis without IV contrast. All CT scans at [facility] location are performed using CT dose reduction for ALARA by means of automated exposure control. COMPARISON: CT dated 07/30/2014 FINDINGS: LOWER CHEST: No significant abnormality. LIVER: No significant abnormality. GALLBLADDER: No significant abnormality. BILE DUCTS: No significant abnormality. PANCREAS: No significant abnormality. SPLEEN: No significant abnormality. ADRENALS: No significant abnormality. RIGHT KIDNEY and URETER: Persistent 2 cm right renal cyst is present LEFT KIDNEY and URETER: No significant abnormality. STOMACH and SMALL BOWEL: No significant abnormality. COLON: Mild diverticulosis of the descending colon sigmoid colon with a focal area of diverticulitis involving the mid descending colon. APPENDIX: No significant abnormality. PERITONEUM: No free fluid. No free air. No fluid collection. LYMPH NODES: No significant adenopathy. AORTA and ARTERIES: No significant abnormality. IVC and VEINS: No significant abnormality. URINARY BLADDER: No significant abnormality. REPRODUCTIVE ORGANS: No significant abnormality. ADDITIONAL FINDINGS: None. SKELETAL SYSTEM: No significant abnormality. IMPRESSION: 1. Diverticulitis descending colon Signer Name: Sabino Rodarte MD Signed: 02/26/2019 5:42 PM Workstation Name: [id number]
== END 2019-02-26 18:37 | disposition home or self-care (01) ==
LOC: ED 13:47
DX: K57.92 Diverticulitis of intestine, part unspecified, without perforation or abscess without bleeding (principal); J45.909 Unspecified asthma, uncomplicated; F17.200 Nicotine dependence, unspecified, uncomplicated; Z79.899 Other long term (current) drug therapy; Z79.82 Long term (current) use of aspirin
CPT/HCPCS: 36415; 74176; 80053; 81001; 85007; 85025; 96374; 96375; 99284; J1885; J2270; J2405

== ENCOUNTER 2020-05-16 18:39 | Emergency (ER) | payer SELFPAY ==
[2020-05-16 20:44] VITALS: BP 121/82
--- NOTE | 2020-05-16 20:56 | Emergency Department Report ---
- General Chief Complaint: Upper Respiratory Infection Stated Complaint: COLD SWEATS/DIFFICULTY BREATING Time Seen by Provider: 05/16/20 20:48 Source: patient Mode of arrival: Ambulatory Limitations: No Limitations - History of Present Illness MD Complaint: cough, nasal congestion -: Gradual, days(s) (5) Severity: mild, moderate Improves With: nothing Worsens With: nothing Associated Symptoms: rhinorrhea, nasal congestion, cough (productive). denies: confusion, right sweats, weight loss, hoarseness - Related Data Previous Rx's Medication Instructions Recorded Last Taken Type traMADoL [Ultram 50 MG tab] 50 mg PO Q6HR PRN #15 tablet 01/12/14 01/14/14 Rx Acetaminophen/Codeine [Tylenol #3] 1 tab PO BID #7 tablet 07/30/14 08/23/14 Rx Ibuprofen [Motrin] 800 mg PO Q8HR PRN #30 tablet 06/29/16 Unknown Rx Albuterol Mdi (or & Nicu Only) 2 puff IH QID PRN #1 inhalation 10/03/16 Unknown Rx [ProAir HFA Inhaler] predniSONE [Deltasone] 20 mg PO BID #10 tab 10/03/16 Unknown Rx Bismuth Subsalicylate 10 mg PO QID PRN #1 udc 04/11/17 Unknown Rx [Pepto-Bismol] Famotidine [Pepcid] 20 mg PO BID PRN #1 bottle 04/11/17 Unknown Rx Ondansetron [Zofran Odt] 4 mg PO Q8HR PRN #10 tab.rapdis 04/11/17 Unknown Rx Ibuprofen [Motrin 800 MG tab] 800 mg PO Q8HR PRN #15 tablet 06/29/18 Unknown Rx Aspirin [Aspirin BABY CHEW TAB] 81 mg PO QDAY #30 tab.chew 12/05/18 Unknown Rx Famotidine [Pepcid] 20 mg PO BID #30 tablet 12/05/18 Unknown Rx Ondansetron [Zofran Odt] 4 mg PO Q8HR PRN #20 tab.rapdis 12/05/18 Unknown Rx Acetaminophen/Codeine [Tylenol 1 tab PO Q6H PRN #10 tab 02/26/19 Unknown Rx /Codeine # 3 tab] Ciprofloxacin HCl [Ciprofloxacin 500 mg PO Q12HR 10 Days #20 tab 02/26/19 Unknown Rx TAB] metroNIDAZOLE [Flagyl TAB] 500 mg PO Q8H 10 Days #30 tab 02/26/19 Unknown Rx Albuterol Mdi (or & Nicu Only) 1 puff IH Q4-6H PRN #1 inha 05/16/20 Unknown Rx [ProAir HFA Inhaler] Azithromycin [Zithromax] 500 mg PO QDAY #3 tablet 05/16/20 Unknown Rx Benzonatate [Tessalon Perles] 100 mg PO Q8HR #20 capsule 05/16/20 Unknown Rx predniSONE [Deltasone] 20 mg PO QDAY #5 tab 05/16/20 Unknown Rx Allergies Allergy/AdvReac Type Severity Reaction Status Date / Time No Known Allergies Allergy Verified 04/11/17 14:50 ED Review of Systems ROS: Stated complaint: COLD SWEATS/DIFFICULTY BREATING Other details as noted in HPI Comment: All other systems reviewed and negative ED Past Medical Hx - Past Medical History Previous Medical History?: Yes Hx Asthma: Yes Additional medical history: Previous abscess - Surgical History Past Surgical History?: No - Social History Smoking Status: Current Every Day Smoker - Medications Home Medications: Home Medications Medication Instructions Recorded Confirmed Last Taken Type traMADoL [Ultram 50 MG tab] 50 mg PO Q6HR PRN #15 tablet 01/12/14 09/13/14 01/14/14 Rx Acetaminophen/Codeine [Tylenol #3] 1 tab PO BID #7 tablet 07/30/14 09/13/14 08/23/14 Rx Ibuprofen [Motrin] 800 mg PO Q8HR PRN #30 tablet 06/29/16 Unknown Rx Albuterol Mdi (or & Nicu Only) 2 puff IH QID PRN #1 inhalation 10/03/16 Unknown Rx [ProAir HFA Inhaler] predniSONE [Deltasone] 20 mg PO BID #10 tab 10/03/16 Unknown Rx Bismuth Subsalicylate 10 mg PO QID PRN #1 udc 04/11/17 Unknown Rx [Pepto-Bismol] Famotidine [Pepcid] 20 mg PO BID PRN #1 bottle 04/11/17 Unknown Rx Ondansetron [Zofran Odt] 4 mg PO Q8HR PRN #10 tab.rapdis 04/11/17 Unknown Rx Ibuprofen [Motrin 800 MG tab] 800 mg PO Q8HR PRN #15 tablet 06/29/18 Unknown Rx Aspirin [Aspirin BABY CHEW TAB] 81 mg PO QDAY #30 tab.chew 12/05/18 Unknown Rx Famotidine [Pepcid] 20 mg PO BID #30 tablet 12/05/18 Unknown Rx Ondansetron [Zofran Odt] 4 mg PO Q8HR PRN #20 tab.rapdis 12/05/18 Unknown Rx Acetaminophen/Codeine [Tylenol 1 tab PO Q6H PRN #10 tab 02/26/19 Unknown Rx /Codeine # 3 tab] Ciprofloxacin HCl [Ciprofloxacin 500 mg PO Q12HR 10 Days #20 tab 02/26/19 Unknown Rx TAB] metroNIDAZOLE [Flagyl TAB] 500 mg PO Q8H 10 Days #30 tab 02/26/19 Unknown Rx Albuterol Mdi (or & Nicu Only) 1 puff IH Q4-6H PRN #1 inha 05/16/20 Unknown Rx [ProAir HFA Inhaler] Azithromycin [Zithromax] 500 mg PO QDAY #3 tablet 05/16/20 Unknown Rx Benzonatate [Tessalon Perles] 100 mg PO Q8HR #20 capsule 05/16/20 Unknown Rx predniSONE [Deltasone] 20 mg PO QDAY #5 tab 05/16/20 Unknown Rx ED Physical Exam - General Limitations: No Limitations General appearance: alert, in no apparent distress - Head Head exam: Present: atraumatic, normocephalic - Eye Eye exam: Present: normal appearance, PERRL, EOMI - ENT ENT exam: Present: mucous membranes moist - Neck Neck exam: Present: normal inspection - Respiratory Respiratory exam: Present: normal lung sounds bilaterally, rhonchi. Absent: respiratory distress - Cardiovascular Cardiovascular Exam: Present: regular rate, normal rhythm. Absent: systolic murmur, diastolic murmur, rubs, gallop - GI/Abdominal GI/Abdominal exam: Present: soft, normal bowel sounds - Rectal Rectal exam: Present: deferred - Extremities Exam Extremities exam: Present: normal inspection, normal capillary refill - Back Exam Back exam: Present: normal inspection. Absent: CVA tenderness (R), CVA tenderness (L) - Neurological Exam Neurological exam: Present: alert, oriented X3, CN II-XII intact - Psychiatric Psychiatric exam: Present: normal affect, normal mood - Skin Skin exam: Present: warm, dry, intact, normal color. Absent: rash ED Course Vital Signs 05/16/20 20:42 Temperature 97.1 F L Pulse Rate 79 Respiratory 14 Rate Blood Pressure 121/82 O2 Sat by Pulse 98 Oximetry ED Medical Decision Making - Radiology Data Radiology results: report reviewed CXR Normal Critical care attestation.: If time is entered above; I have spent that time in minutes in the direct care of this critically ill patient, excluding procedure time. ED Disposition Clinical Impression: Cough, Bronchitis Disposition: DC-01 TO HOME OR SELFCARE Is pt being admited?: No Does the pt Need Aspirin: No Condition: Stable Instructions: Chronic Bronchitis (ED), Upper Respiratory Infection, Adult, [id number], Cool Mist Vaporizer, Chronic Bronchitis, Adult, Cough, Adult Prescriptions: predniSONE [Deltasone] 20 mg PO QDAY #5 tab Albuterol Mdi (or & Nicu Only) [ProAir HFA Inhaler] 1 puff IH Q4-6H PRN #1 inha PRN Reason: Cough Benzonatate [Tessalon Perles] 100 mg PO Q8HR #20 capsule Azithromycin [Zithromax] 500 mg PO QDAY #3 tablet Referrals: KELVIN DOZIER MD [Staff Physician] - 3-5 Days
--- NOTE | 2020-05-16 21:32 | XRay Report ---
CHEST 2 VIEWS INDICATION / CLINICAL INFORMATION: cough and chest congestion. COMPARISON: 12/04/2018. FINDINGS: SUPPORT DEVICES: None. HEART / MEDIASTINUM: No significant abnormality. LUNGS / PLEURA: No significant pulmonary or pleural abnormality. No pneumothorax. ADDITIONAL FINDINGS: No significant additional findings. IMPRESSION: No acute cardiopulmonary abnormality. Signer Name: Nhan Zavala MD Signed: 05/16/2020 9:28 PM Workstation Name: [id number]
== END 2020-05-17 00:20 | disposition home or self-care (01) ==
LOC: ED 18:39
DX: J40 Bronchitis, not specified as acute or chronic (principal); F17.200 Nicotine dependence, unspecified, uncomplicated; Z79.82 Long term (current) use of aspirin; Z79.899 Other long term (current) drug therapy
CPT/HCPCS: 71046; 99283

== ENCOUNTER 2020-05-24 11:49 | Emergency (ER) | payer SELFPAY ==
[2020-05-24 12:07] VITALS: BP 133/71
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
== END 2020-05-24 12:50 | disposition home or self-care (01) ==
LOC: ED 11:49
DX: M54.6 Pain in thoracic spine (principal); J45.909 Unspecified asthma, uncomplicated; F17.200 Nicotine dependence, unspecified, uncomplicated; Z79.899 Other long term (current) drug therapy; V49.59XA Passenger injured in collision with other motor vehicles in traffic accident, initial encounter; Y92.410 Unspecified street and highway as the place of occurrence of the external cause; Y93.89 Activity, other specified; Y99.8 Other external cause status
CPT/HCPCS: 99282

== ENCOUNTER 2020-12-27 15:02 | Emergency (ER) | payer SELFPAY ==
[2020-12-27 17:17] VITALS: BP 119/70
--- NOTE | 2020-12-27 17:34 | Emergency Department Report ---
- General Chief Complaint: Upper Respiratory Infection Stated Complaint: HEADACHE Time Seen by Provider: 12/27/20 17:30 Source: patient Mode of arrival: Ambulatory Limitations: No Limitations - History of Present Illness Initial Comments: Patient is a 40-year-old male presents emergency room complaints of generalized body aches that began 5 days ago. He has associated headache, rhinorrhea, chills. He denies any fever, cough, shortness of breath, chest pain, vomiting, diarrhea. He states he did have a positive COVID-19 contact last week. Patient states that he did get vaccinated for COVID-19 and received a booster shot 3 weeks ago. He denies any past medical history or allergies to medications. - Related Data Previous Rx's Medication Instructions Recorded Last Taken Type traMADoL [Ultram 50 MG tab] 50 mg PO Q6HR PRN #15 tablet 01/12/14 01/14/14 Rx Acetaminophen/Codeine [Tylenol #3] 1 tab PO BID #7 tablet 07/30/14 08/23/14 Rx Ibuprofen [Motrin] 800 mg PO Q8HR PRN #30 tablet 06/29/16 Unknown Rx Albuterol Mdi (or & Nicu Only) 2 puff IH QID PRN #1 inhalation 10/03/16 Unknown Rx [ProAir HFA Inhaler] predniSONE [Deltasone] 20 mg PO BID #10 tab 10/03/16 Unknown Rx Bismuth Subsalicylate 10 mg PO QID PRN #1 udc 04/11/17 Unknown Rx [Pepto-Bismol] Famotidine [Pepcid] 20 mg PO BID PRN #1 bottle 04/11/17 Unknown Rx Ondansetron [Zofran Odt] 4 mg PO Q8HR PRN #10 tab.rapdis 04/11/17 Unknown Rx Aspirin [Aspirin BABY CHEW TAB] 81 mg PO QDAY #30 tab.chew 12/05/18 Unknown Rx Famotidine [Pepcid] 20 mg PO BID #30 tablet 12/05/18 Unknown Rx Ondansetron [Zofran Odt] 4 mg PO Q8HR PRN #20 tab.rapdis 12/05/18 Unknown Rx Acetaminophen/Codeine [Tylenol 1 tab PO Q6H PRN #10 tab 02/26/19 Unknown Rx /Codeine # 3 tab] Ciprofloxacin HCl [Ciprofloxacin 500 mg PO Q12HR 10 Days #20 tab 02/26/19 Unknown Rx TAB] metroNIDAZOLE [Flagyl TAB] 500 mg PO Q8H 10 Days #30 tab 02/26/19 Unknown Rx Albuterol Mdi (or & Nicu Only) 1 puff IH Q4-6H PRN #1 inha 05/16/20 Unknown Rx [ProAir HFA Inhaler] Azithromycin [Zithromax] 500 mg PO QDAY #3 tablet 05/16/20 Unknown Rx Benzonatate [Tessalon Perles] 100 mg PO Q8HR #20 capsule 05/16/20 Unknown Rx predniSONE [Deltasone] 20 mg PO QDAY #5 tab 05/16/20 Unknown Rx Ibuprofen [Motrin 800 MG tab] 800 mg PO Q8HR PRN #15 tablet 05/24/20 Unknown Rx Allergies Allergy/AdvReac Type Severity Reaction Status Date / Time No Known Allergies Allergy Verified 05/24/20 11:51 ED Review of Systems ROS: Stated complaint: HEADACHE Other details as noted in HPI Comment: All other systems reviewed and negative ED Past Medical Hx - Past Medical History Hx Asthma: Yes Additional medical history: Previous abscess - Social History Smoking Status: Current Every Day Smoker - Medications Home Medications: Home Medications Medication Instructions Recorded Confirmed Last Taken Type traMADoL [Ultram 50 MG tab] 50 mg PO Q6HR PRN #15 tablet 01/12/14 09/13/14 01/14/14 Rx Acetaminophen/Codeine [Tylenol #3] 1 tab PO BID #7 tablet 07/30/14 09/13/14 08/23/14 Rx Ibuprofen [Motrin] 800 mg PO Q8HR PRN #30 tablet 06/29/16 Unknown Rx Albuterol Mdi (or & Nicu Only) 2 puff IH QID PRN #1 inhalation 10/03/16 Unknown Rx [ProAir HFA Inhaler] predniSONE [Deltasone] 20 mg PO BID #10 tab 10/03/16 Unknown Rx Bismuth Subsalicylate 10 mg PO QID PRN #1 udc 04/11/17 Unknown Rx [Pepto-Bismol] Famotidine [Pepcid] 20 mg PO BID PRN #1 bottle 04/11/17 Unknown Rx Ondansetron [Zofran Odt] 4 mg PO Q8HR PRN #10 tab.rapdis 04/11/17 Unknown Rx Aspirin [Aspirin BABY CHEW TAB] 81 mg PO QDAY #30 tab.chew 12/05/18 Unknown Rx Famotidine [Pepcid] 20 mg PO BID #30 tablet 12/05/18 Unknown Rx Ondansetron [Zofran Odt] 4 mg PO Q8HR PRN #20 tab.rapdis 12/05/18 Unknown Rx Acetaminophen/Codeine [Tylenol 1 tab PO Q6H PRN #10 tab 02/26/19 Unknown Rx /Codeine # 3 tab] Ciprofloxacin HCl [Ciprofloxacin 500 mg PO Q12HR 10 Days #20 tab 02/26/19 Unknown Rx TAB] metroNIDAZOLE [Flagyl TAB] 500 mg PO Q8H 10 Days #30 tab 02/26/19 Unknown Rx Albuterol Mdi (or & Nicu Only) 1 puff IH Q4-6H PRN #1 inha 05/16/20 Unknown Rx [ProAir HFA Inhaler] Azithromycin [Zithromax] 500 mg PO QDAY #3 tablet 05/16/20 Unknown Rx Benzonatate [Tessalon Perles] 100 mg PO Q8HR #20 capsule 05/16/20 Unknown Rx predniSONE [Deltasone] 20 mg PO QDAY #5 tab 05/16/20 Unknown Rx Ibuprofen [Motrin 800 MG tab] 800 mg PO Q8HR PRN #15 tablet 05/24/20 Unknown Rx ED Physical Exam - General Limitations: No Limitations General appearance: alert, in no apparent distress - Head Head exam: Present: atraumatic, normocephalic - ENT ENT exam: Present: mucous membranes moist - Respiratory Respiratory exam: Present: normal lung sounds bilaterally. Absent: respiratory distress, wheezes, rales, rhonchi, stridor, chest wall tenderness, accessory muscle use, decreased breath sounds, prolonged expiratory - Cardiovascular Cardiovascular Exam: Present: regular rate, normal rhythm, normal heart sounds. Absent: systolic murmur, diastolic murmur, rubs, gallop - Neurological Exam Neurological exam: Present: alert, oriented X3 - Psychiatric Psychiatric exam: Present: normal affect, normal mood - Skin Skin exam: Present: warm, dry, intact ED Course Vital Signs 12/27/20 17:14 Temperature 98.7 F Pulse Rate 58 L Respiratory 16 Rate Blood Pressure 119/70 [Right] O2 Sat by Pulse 99 Oximetry ED Medical Decision Making - Medical Decision Making Patient is a 40-year-old male presents emergency room complaints of generalized body aches that began 5 days ago. He has associated headache, rhinorrhea, chills, diarrhea. He denies any fever, cough, shortness of breath, chest pain, vomiting. He states he did have a positive COVID-19 contact last week. Patient states that he did get vaccinated for COVID-19 and received a booster shot 3 weeks ago. He denies any past medical history or allergies to medications. Vitals are stable. Patient is afebrile, no tachycardia, no hypoxia, no hypotension. No abnormality on physical examination as documented in chart. Symptoms likely related to URI. Given that patient has had positive contact for COVID-19 and he is presenting during the middle of a COVID-19 pandemic, discussed the possibility of COVID-19 with patient, discussed return precautions, discussed outpatient testing, discussed self quarantine. Advised patient Please increase your fluid intake over the next several days. May take Tylenol or ibuprofen as needed for fever or body aches. May take [id number] cold symptom relief medication such as Mucinex or TheraFlu. Get plenty of rest. Follow-up with a primary care doctor for reexamination. Return to emergency room immediately for any new or worsening symptoms including but not limited to difficulty breathing, shortness of breath, severe chest pain, unable to tolerate by mouth intake, etc. Please self quarantine for 10 days from the onset of your symptoms. Please do not go out in public. Recommend for you to get COVID-19 testing. Recommend for you to get a pulse oximetry meter [id number] and to return to the emergency room if your oxygen is below 93% Critical care attestation.: If time is entered above; I have spent that time in minutes in the direct care of this critically ill patient, excluding procedure time. ED Disposition Clinical Impression: Upper respiratory infection Qualifiers: URI type: unspecified URI Qualified Code(s): J06.9 - Acute upper respiratory infection, unspecified Disposition: 01 HOME / SELF CARE / HOMELESS Is pt being admited?: No Does the pt Need Aspirin: No Condition: Stable Instructions: Viral Respiratory Infection Additional Instructions: Please increase your fluid intake over the next several days. May take Tylenol or ibuprofen as needed for fever or body aches. May take [id number] cold symptom relief medication such as Mucinex or TheraFlu. Get plenty of rest. F ollow-up with a primary care doctor for reexamination. Return to emergency room immediately for any new or worsening symptoms including but not limited to difficulty breathing, shortness of breath, severe chest pain, unable to tolerate by mouth intake, etc. Please self quarantine for 10 days from the onset of your symptoms. Please do not go out in public. Recommend for you to get COVID- 19 testing. Recommend for you to get a pulse oximetry meter [id number] and to return to the emergency room if your oxygen is below 93% Referrals: KELVIN DOZIER MD [Staff Physician] - 3-5 Days [facility] [Provider Group] - 3-5 Days Forms: Work/School Release Form(ED) Time of Disposition: 17:33 Print Language: FILIPINO
== END 2020-12-27 18:28 | disposition home or self-care (01) ==
LOC: ED 15:02
DX: J06.9 Acute upper respiratory infection, unspecified (principal); J45.909 Unspecified asthma, uncomplicated; F17.200 Nicotine dependence, unspecified, uncomplicated; Z79.899 Other long term (current) drug therapy
CPT/HCPCS: 99281

== ENCOUNTER 2021-01-20 22:01 | Emergency (ER) | payer SELFPAY ==
[2021-01-20 22:20] VITALS: BP 129/85
[2021-01-20] MEDS ORDERED: ACETAMINOPHEN 500 MG TAB PO ONE (22:35)
--- NOTE | 2021-01-20 22:38 | Emergency Department Report ---
HPI - General Chief Complaint: Chest Pain Time Seen by Provider: 01/20/21 22:25 - HPI HPI: This is a 40-year-old -[place] male presents to the emergency department with a complaint of a 2-day history of a sore throat, 1 day history of shortness of breath, and then began having some upper abdominal pain and questionable left-sided chest discomfort since earlier this afternoon. Patient has felt febrile but did not check his temperature, and then arrives with a fever of 102 F. The patient has tried Mucinex, Advil PM and [place] without any relief. He has a history of asthma. He is a tobacco smoker but has not smoked a cigarette in about 1 week. The patient initially got vaccinated for Covid in 2019 as part of the [employer] trials, and recently got a booster about 1 month ago. His significant other had Covid about 2 to 3 weeks ago. No recent travel. ED Past Medical Hx - Past Medical History Previous Medical History?: Yes Hx Asthma: Yes Additional medical history: Previous abscess - Surgical History Past Surgical History?: No - Social History Smoking Status: Current Every Day Smoker - Medications Home Medications: Home Medications Medication Instructions Recorded Confirmed Last Taken Type traMADoL [Ultram 50 MG tab] 50 mg PO Q6HR PRN #15 tablet 01/12/14 09/13/14 01/14/14 Rx Acetaminophen/Codeine [Tylenol #3] 1 tab PO BID #7 tablet 07/30/14 09/13/14 08/23/14 Rx predniSONE [Deltasone] 20 mg PO BID #10 tab 10/03/16 Unknown Rx Bismuth Subsalicylate 10 mg PO QID PRN #1 udc 04/11/17 Unknown Rx [Pepto-Bismol] Famotidine [Pepcid] 20 mg PO BID PRN #1 bottle 04/11/17 Unknown Rx Ondansetron [Zofran Odt] 4 mg PO Q8HR PRN #10 tab.rapdis 04/11/17 Unknown Rx Aspirin [Aspirin BABY CHEW TAB] 81 mg PO QDAY #30 tab.chew 12/05/18 Unknown Rx Famotidine [Pepcid] 20 mg PO BID #30 tablet 12/05/18 Unknown Rx Ondansetron [Zofran Odt] 4 mg PO Q8HR PRN #20 tab.rapdis 12/05/18 Unknown Rx Acetaminophen/Codeine [Tylenol 1 tab PO Q6H PRN #10 tab 02/26/19 Unknown Rx /Codeine # 3 tab] Ciprofloxacin HCl [Ciprofloxacin 500 mg PO Q12HR 10 Days #20 tab 02/26/19 Unknown Rx TAB] metroNIDAZOLE [Flagyl TAB] 500 mg PO Q8H 10 Days #30 tab 02/26/19 Unknown Rx Albuterol Mdi (or & Nicu Only) 1 puff IH Q4-6H PRN #1 inha 05/16/20 Unknown Rx [ProAir HFA Inhaler] Azithromycin [Zithromax] 500 mg PO QDAY #3 tablet 05/16/20 Unknown Rx Benzonatate [Tessalon Perles] 100 mg PO Q8HR #20 capsule 05/16/20 Unknown Rx predniSONE [Deltasone] 20 mg PO QDAY #5 tab 05/16/20 Unknown Rx Ibuprofen [Motrin 800 MG tab] 800 mg PO Q8HR PRN #15 tablet 05/24/20 Unknown Rx Albuterol Mdi (or & Nicu Only) 2 puff IH QID PRN #1 inhalation 01/20/21 Unknown Rx [ProAir HFA Inhaler] Amoxicillin/Potassium Clav 1 each PO BID #14 tablet 01/20/21 Unknown Rx [Augmentin 875-125 Tablet] Ibuprofen [Motrin 800 MG tab] 800 mg PO Q8HR PRN #20 tablet 01/20/21 Unknown Rx ED Review of Systems ROS: Stated complaint: CHEST PAIN SORE THROAT SOB Other details as noted in HPI Comment: All other systems reviewed and negative Constitutional: fever. denies: malaise Eyes: denies: eye pain, vision change ENT: throat pain. denies: ear pain Respiratory: shortness of breath. denies: cough Cardiovascular: chest pain. denies: edema Gastrointestinal: abdominal pain. denies: vomiting Genitourinary: denies: dysuria, discharge Musculoskeletal: denies: joint swelling, arthralgia Skin: denies: rash, lesions Neurological: denies: numbness, paresthesias Physical Exam - Physical Exam Vital Signs: Vital Signs 01/20/21 22:11 Temperature 102.1 F H Pulse Rate 100 H Respiratory 18 Rate Blood Pressure 129/85 O2 Sat by Pulse 98 Oximetry Physical Exam: GENERAL: The patient is well-developed well-nourished. HENT: Normocephalic. Atraumatic. Patient has moist mucous membranes. There is bilateral tonsillar hypertrophy and erythema. No drooling or trismus. EYES: Extraocular motions are intact. No nystagmus. NECK: Supple. Trachea is midline. Right submandibular and preauricular lymphadenopathy. CHEST/LUNGS: Clear to auscultation. No tachypnea or accessory muscle use. There is no respiratory distress noted. HEART/CARDIOVASCULAR: Regular. There is no tachycardia. There is no murmur. ABDOMEN: Abdomen is soft, nontender. Patient has normal bowel sounds. SKIN: Skin is warm and dry. NEURO: The patient is awake, alert, and oriented. The patient is cooperative. The patient has no focal neurologic deficits. Normal speech. Cranial nerves II through XII grossly intact. No facial asymmetry. MUSCULOSKELETAL: There is no tenderness or deformity. There is no limitation range of motion. ED Course Vital Signs 01/20/21 22:11 Temperature 102.1 F H Pulse Rate 100 H Respiratory 18 Rate Blood Pressure 129/85 O2 Sat by Pulse 98 Oximetry ED Medical Decision Making - Lab Data Result diagrams: 01/20/21 22:41 01/20/21 22:41 Lab Results 01/20/21 01/20/21 01/20/21 Range/Units 22:41 22:41 22:41 WBC 11.9 H (4.5-11.0) K/mm3 RBC 4.68 (3.65-5.03) M/mm3 Hgb 14.4 (11.8-15.2) gm/dl Hct 41.7 (35.5-45.6) % MCV 89 (84-94) fl MCH 31 (28-32) pg MCHC 35 H (32-34) % RDW 12.8 L (13.2-15.2) % Plt Count 198 (140-440) K/mm3 Lymph % (Auto) 9.7 L (13.4-35.0) % [place] % (Auto) 10.8 H (0.0-7.3) % Eos % (Auto) 0.9 (0.0-4.3) % Baso % (Auto) 0.2 (0.0-1.8) % Lymph # (Auto) 1.2 (1.2-5.4) K/mm3 [place] # (Auto) 1.3 H (0.0-0.8) K/mm3 Eos # (Auto) 0.1 (0.0-0.4) K/mm3 Baso # (Auto) 0.0 (0.0-0.1) K/mm3 Seg Neutrophils % 78.4 H (40.0-70.0) % Seg Neutrophils # 9.3 H (1.8-7.7) K/mm3 Sodium 134 L (137-145) mmol/L Potassium 3.9 (3.6-5.0) mmol/L Chloride 100.0 (98-107) mmol/L Carbon Dioxide 22 (22-30) mmol/L Anion Gap 16 mmol/L BUN 10 (9-20) mg/dL Creatinine 1.2 (0.8-1.3) mg/dL Estimated GFR > 60 ml/min BUN/Creatinine Ratio 8 % Glucose 124 H (75-100) mg/dL Calcium 8.9 (8.4-10.2) mg/dL Total Bilirubin 0.50 (0.1-1.2) mg/dL AST 13 (5-40) units/L ALT 18 (7-56) units/L Alkaline Phosphatase 88 (35-129) units/L Troponin T < 0.010 (0.00-0.029) ng/mL Total Protein 7.1 (6.3-8.2) g/dL Albumin 4.0 (3.9-5) g/dL Albumin/Globulin Ratio 1.3 % Lipase 19 (13-60) units/L Influenza A (Rapid) (Negative) Influenza B (Rapid) (Negative) Group A Strep Rapid (Negative) 01/20/21 Range/Units Unknown WBC (4.5-11.0) K/mm3 RBC (3.65-5.03) M/mm3 Hgb (11.8-15.2) gm/dl Hct (35.5-45.6) % MCV (84-94) fl MCH (28-32) pg MCHC (32-34) % RDW (13.2-15.2) % Plt Count (140-440) K/mm3 Lymph % (Auto) (13.4-35.0) % [place] % (Auto) (0.0-7.3) % Eos % (Auto) (0.0-4.3) % Baso % (Auto) (0.0-1.8) % Lymph # (Auto) (1.2-5.4) K/mm3 [place] # (Auto) (0.0-0.8) K/mm3 Eos # (Auto) (0.0-0.4) K/mm3 Baso # (Auto) (0.0-0.1) K/mm3 Seg Neutrophils % (40.0-70.0) % Seg Neutrophils # (1.8-7.7) K/mm3 Sodium (137-145) mmol/L Potassium (3.6-5.0) mmol/L Chloride (98-107) mmol/L Carbon Dioxide (22-30) mmol/L Anion Gap mmol/L BUN (9-20) mg/dL Creatinine (0.8-1.3) mg/dL Estimated GFR ml/min BUN/Creatinine Ratio % Glucose (75-100) mg/dL Calcium (8.4-10.2) mg/dL Total Bilirubin (0.1-1.2) mg/dL AST (5-40) units/L ALT (7-56) units/L Alkaline Phosphatase (35-129) units/L Troponin T (0.00-0.029) ng/mL Total Protein (6.3-8.2) g/dL Albumin (3.9-5) g/dL Albumin/Globulin Ratio % Lipase (13-60) units/L Influenza A (Rapid) Negative (Negative) Influenza B (Rapid) Negative (Negative) Group A Strep Rapid Positive A (Negative) - EKG Data -: EKG Interpreted by Ms EKG shows normal: sinus rhythm, axis, intervals, QRS complexes, ST-T waves Rate: normal - EKG Data When compared to previous EKG there are: previous EKG unavailable Interpretation: normal EKG - Radiology Data Radiology results: image reviewed interpreted by tx: Chest x-ray does not show any acute process. There are no pleural effusions, obvious pneumonia and there is no pneumothorax. - Medical Decision Making This patient presents with a complaint of a headache, sore throat, chest discomfort, abdominal pain, fever. On examination the patient does not have any focal, motor or sensory deficits and his cranial nerves are intact. Heart and lung sounds are normal to auscultation and he is not appear in any respiratory or acute distress. He has bilateral tonsillar hypertrophy and erythema. The patient does have a fever and was given a dose of acetaminophen. EKG does not have any morphology consistent with ST elevation myocardial infarction. Chest x-ray does not show any pneumonia, pleural effusions, pneumothorax, widened mediastinum, or any other acute process. Patient's labs are mostly unremarkable including CBC, metabolic panel, negative troponin. He is negative for influenza a and B, but the patient is positive for strep pharyngitis. This is most likely the cause of the patient's symptoms. He has been started on Augmentin. The patient still has been instructed to follow-up outpatient for COVID-19 testing. We discussed handwashing and precautions. The patient complained of some questionable lower left-sided chest pain. He is low on the heart score. His symptoms do not appear consistent with ACS. The patient is still been given an outpatient referral for cardiology to follow-up outpatient. He will return to the emergency department with any worsening of his symptoms or with any acute distress. Critical Care Time: No Critical care attestation.: If time is entered above; I have spent that time in minutes in the direct care of this critically ill patient, excluding procedure time. ED Disposition Clinical Impression: Strep pharyngitis, Shortness of breath, Atypical chest pain Fever Qualifiers: Fever type: unspecified Qualified Code(s): R50.9 - Fever, unspecified Disposition: 01 HOME / SELF CARE / HOMELESS Is pt being admited?: No Condition: Stable Instructions: Fever, Adult, Strep Throat, Adult, Nonspecific Chest Pain, Adult, Shortness of Breath, Adult Additional Instructions: Please follow-up with a primary care physician in the next few days. I have g iven you a referral for a local primary care physician, Dr. Mobley, and a primary care clinic, [facility]. 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 Amador, to follow-up regarding your chest pains. You can take Tylenol every 4-6 hours and ibuprofen every 6-8 hours, using dosing on the back of the bottle, as needed for any fever or discomfort. Unfortunately I am unable to do [id number] testing for COVID-19. Given your recent exposure to someone positive for COVID-19, I do recommend seeking outpatient COVID-19 testing. Do not share any food or drink, and avoid any close contact, with anyone for at least 1 week. Take all medication as prescribed. You should avoid going to work until you are 24 hours without a fever without having to use Tylenol or ibuprofen to do so. Return to the emergency department with any worsening of your symptoms, new or concerning symptoms not addressed during this current emergency department visit, or with any acute distress. Prescriptions: Amoxicillin/Potassium Clav [Augmentin 875-125 Tablet] 1 each PO BID #14 tablet Ibuprofen [Motrin 800 MG tab] 800 mg PO Q8HR PRN #20 tablet PRN Reason: Pain Albuterol Mdi (or & Nicu Only) [ProAir HFA Inhaler] 2 puff IH QID PRN #1 inhalation PRN Reason: Shortness Of Breath Referrals: KELVIN MOBLEY MD [Staff Physician] - 3-5 Days LINSEY AMADOR MD [Staff Physician] - 3-5 Days [facility] [Provider Group] - 3-5 Days Time of Disposition: 23:59 Heart Score - HEART Score History: Slightly suspicious EKG: Normal Age: < 45 Risk factors: 1-2 risk factors Troponin: < normal limit HEART Score: 1 - EKG Read Time Time EKG Completed: 22:13 EKG Read Time: 22:17 - Critical Actions Critical Actions: 0-3 pts:0.9-1.7%risk of adverse cardiac event.Candidate for discharge
[2021-01-20 23:19] LABS: Basophils % (Auto) 0.2 % (0.0-1.8); Eosinophils # (Auto) 0.1 K/mm3 (0.0-0.4); Eosinophils % (Auto) 0.9 % (0.0-4.3); Hematocrit 41.7 % (35.5-45.6); Hemoglobin 14.4 gm/dl (11.8-15.2); Lymphocytes # (Auto) 1.2 K/mm3 (1.2-5.4); Lymphocytes % (Auto) 9.7 % (13.4-35.0); Mean Corpuscular HGB Conc 35 % (32-34); Mean Corpuscular Volume 89 fl (84-94); Monocytes # (Auto) 1.3 K/mm3 (0.0-0.8); Monocytes % (Auto) 10.8 % (0.0-7.3); Platelet Count 198 K/mm3 (140-440); Red Blood Count 4.68 M/mm3 (3.65-5.03); Red Cell Distribution Width 12.8 % (13.2-15.2)
[2021-01-20] MEDS ORDERED: AMOXICILLIN/K CLAV 875/125MG TAB PO ONE (23:35)
[2021-01-20 23:36] LABS: Alanine Aminotransferase 18 units/L (7-56); BUN/Creatinine Ratio 8; Blood Urea Nitrogen 10 mg/dL (9-20); Calcium 8.9 mg/dL (8.4-10.2); Hemolysis Index 4
--- NOTE | 2021-01-20 23:51 | XRay Report ---
CHEST 2 VIEWS INDICATION / CLINICAL INFORMATION: SOB. Dyspnea FINDINGS: SUPPORT DEVICES: None. HEART / MEDIASTINUM: No significant abnormality. LUNGS / PLEURA: No significant pulmonary or pleural abnormality. No pneumothorax. ADDITIONAL FINDINGS: No significant additional findings. IMPRESSION: 1. No acute findings. Signer Name: Robe Petersen MD Signed: 01/20/2021 11:47 PM Workstation Name: [id number]
--- NOTE | 2021-01-23 11:12 | Electrocardiograph Report ---
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
== END 2021-01-21 00:14 | disposition home or self-care (01) ==
LOC: ED 22:01
DX: J02.0 Streptococcal pharyngitis (principal); B95.0 Streptococcus, group A, as the cause of diseases classified elsewhere; R07.89 Other chest pain; J45.909 Unspecified asthma, uncomplicated; F17.200 Nicotine dependence, unspecified, uncomplicated; Z79.899 Other long term (current) drug therapy
CPT/HCPCS: 36415; 71046; 80053; 83690; 84484; 85025; 87400; 87430; 93005; 99284

== ENCOUNTER 2021-05-09 13:11 | Emergency (ER) | payer SELFPAY ==
[2021-05-09 13:53] VITALS: BP 135/74
--- NOTE | 2021-05-09 16:16 | Emergency Department Report ---
ED General Adult HPI - General Chief complaint: Neck Pain/Injury Stated complaint: NECK AND BACK PAIN Time Seen by Provider: 05/09/21 16:10 Source: patient Mode of arrival: Ambulatory Limitations: No Limitations - History of Present Illness Initial comments: Patient is a 40-year-old male presents emergency room complaints of neck and upper back pain that began 2 days ago. He denies any fall or injury. 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 He denies any fever, nausea, vomiting, diarrhea, numbness, weakness. He denies any steroid use, history of cancer, IV drug use. Patient denies any past medical history. He denies any medication allergies. He states he needs an excuse to return to work tomorrow. Severity scale (0 -10): 10 - Related Data Previous Rx's Medication Instructions Recorded Last Taken Type traMADoL [Ultram 50 MG tab] 50 mg PO Q6HR PRN #15 tablet 01/12/14 01/14/14 Rx Acetaminophen/Codeine [Tylenol #3] 1 tab PO BID #7 tablet 07/30/14 08/23/14 Rx predniSONE [Deltasone] 20 mg PO BID #10 tab 10/03/16 Unknown Rx Bismuth Subsalicylate 10 mg PO QID PRN #1 udc 04/11/17 Unknown Rx [Pepto-Bismol] Famotidine [Pepcid] 20 mg PO BID PRN #1 bottle 04/11/17 Unknown Rx Ondansetron [Zofran Odt] 4 mg PO Q8HR PRN #10 tab.rapdis 04/11/17 Unknown Rx Aspirin [Aspirin BABY CHEW TAB] 81 mg PO QDAY #30 tab.chew 12/05/18 Unknown Rx Famotidine [Pepcid] 20 mg PO BID #30 tablet 12/05/18 Unknown Rx Ondansetron [Zofran Odt] 4 mg PO Q8HR PRN #20 tab.rapdis 12/05/18 Unknown Rx Acetaminophen/Codeine [Tylenol 1 tab PO Q6H PRN #10 tab 02/26/19 Unknown Rx /Codeine # 3 tab] Ciprofloxacin HCl [Ciprofloxacin 500 mg PO Q12HR 10 Days #20 tab 02/26/19 Unknown Rx TAB] metroNIDAZOLE [Flagyl TAB] 500 mg PO Q8H 10 Days #30 tab 02/26/19 Unknown Rx Albuterol Mdi (or & Nicu Only) 1 puff IH Q4-6H PRN #1 inha 05/16/20 Unknown Rx [ProAir HFA Inhaler] Azithromycin [Zithromax] 500 mg PO QDAY #3 tablet 05/16/20 Unknown Rx Benzonatate [Tessalon Perles] 100 mg PO Q8HR #20 capsule 05/16/20 Unknown Rx predniSONE [Deltasone] 20 mg PO QDAY #5 tab 05/16/20 Unknown Rx Ibuprofen [Motrin 800 MG tab] 800 mg PO Q8HR PRN #15 tablet 05/24/20 Unknown Rx Albuterol Mdi (or & Nicu Only) 2 puff IH QID PRN #1 inhalation 01/20/21 Unknown Rx [ProAir HFA Inhaler] Amoxicillin/Potassium Clav 1 each PO BID #14 tablet 01/20/21 Unknown Rx [Augmentin 875-125 Tablet] Ibuprofen [Motrin 800 MG tab] 800 mg PO Q8HR PRN #20 tablet 01/20/21 Unknown Rx Menthol/Camphor [[place] 1 applicatio TP BID #18 g 05/09/21 Unknown Rx Ointment] Naproxen 375 mg PO BID PRN #20 tab 05/09/21 Unknown Rx methOCARBAMOL [Robaxin TAB] 500 mg PO BID PRN #20 tab 05/09/21 Unknown Rx Allergies Allergy/AdvReac Type Severity Reaction Status Date / Time No Known Allergies Allergy Verified 05/24/20 11:51 ED Review of Systems ROS: Stated complaint: NECK AND BACK PAIN Other details as noted in HPI Comment: All other systems reviewed and negative ED Past Medical Hx - Past Medical History Hx Asthma: Yes Additional medical history: Previous abscess - Social History Smoking Status: Current Every Day Smoker - Medications Home Medications: Home Medications Medication Instructions Recorded Confirmed Last Taken Type traMADoL [Ultram 50 MG tab] 50 mg PO Q6HR PRN #15 tablet 01/12/14 09/13/14 01/14/14 Rx Acetaminophen/Codeine [Tylenol #3] 1 tab PO BID #7 tablet 07/30/14 09/13/14 08/23/14 Rx predniSONE [Deltasone] 20 mg PO BID #10 tab 10/03/16 Unknown Rx Bismuth Subsalicylate 10 mg PO QID PRN #1 udc 04/11/17 Unknown Rx [Pepto-Bismol] Famotidine [Pepcid] 20 mg PO BID PRN #1 bottle 04/11/17 Unknown Rx Ondansetron [Zofran Odt] 4 mg PO Q8HR PRN #10 tab.rapdis 04/11/17 Unknown Rx Aspirin [Aspirin BABY CHEW TAB] 81 mg PO QDAY #30 tab.chew 12/05/18 Unknown Rx Famotidine [Pepcid] 20 mg PO BID #30 tablet 12/05/18 Unknown Rx Ondansetron [Zofran Odt] 4 mg PO Q8HR PRN #20 tab.rapdis 12/05/18 Unknown Rx Acetaminophen/Codeine [Tylenol 1 tab PO Q6H PRN #10 tab 02/26/19 Unknown Rx /Codeine # 3 tab] Ciprofloxacin HCl [Ciprofloxacin 500 mg PO Q12HR 10 Days #20 tab 02/26/19 Unknown Rx TAB] metroNIDAZOLE [Flagyl TAB] 500 mg PO Q8H 10 Days #30 tab 02/26/19 Unknown Rx Albuterol Mdi (or & Nicu Only) 1 puff IH Q4-6H PRN #1 inha 05/16/20 Unknown Rx [ProAir HFA Inhaler] Azithromycin [Zithromax] 500 mg PO QDAY #3 tablet 05/16/20 Unknown Rx Benzonatate [Tessalon Perles] 100 mg PO Q8HR #20 capsule 05/16/20 Unknown Rx predniSONE [Deltasone] 20 mg PO QDAY #5 tab 05/16/20 Unknown Rx Ibuprofen [Motrin 800 MG tab] 800 mg PO Q8HR PRN #15 tablet 05/24/20 Unknown Rx Albuterol Mdi (or & Nicu Only) 2 puff IH QID PRN #1 inhalation 01/20/21 Unknown Rx [ProAir HFA Inhaler] Amoxicillin/Potassium Clav 1 each PO BID #14 tablet 01/20/21 Unknown Rx [Augmentin 875-125 Tablet] Ibuprofen [Motrin 800 MG tab] 800 mg PO Q8HR PRN #20 tablet 01/20/21 Unknown Rx Menthol/Camphor [[place] 1 applicatio TP BID #18 g 05/09/21 Unknown Rx Ointment] Naproxen 375 mg PO BID PRN #20 tab 05/09/21 Unknown Rx methOCARBAMOL [Robaxin TAB] 500 mg PO BID PRN #20 tab 05/09/21 Unknown Rx ED Physical Exam - General Limitations: No Limitations General appearance: alert, in no apparent distress - Head Head exam: Present: atraumatic, normocephalic - Eye Eye exam: Present: normal appearance - ENT ENT exam: Present: mucous membranes moist - Neck Neck exam: Present: normal inspection, tenderness (bilateral c-spine paraspinal muscular ttp, no midline c-spine ttp, no step offs, no deformities ), full ROM. Absent: meningismus - Respiratory Respiratory exam: Present: normal lung sounds bilaterally. Absent: respiratory distress, wheezes, rales, rhonchi, stridor, chest wall tenderness, accessory muscle use, decreased breath sounds, prolonged expiratory - Cardiovascular Cardiovascular Exam: Present: regular rate, normal rhythm, normal heart sounds. Absent: systolic murmur, diastolic murmur, rubs, gallop - Back Exam Back exam: Present: normal inspection, full ROM, paraspinal tenderness (bilateral t-spine paraspinal muscular ttp, no midline t-spine or l-spine ttp, no step offs, no deformities). Absent: vertebral tenderness - Neurological Exam Neurological exam: Present: alert, oriented X3 - Psychiatric Psychiatric exam: Present: normal affect, normal mood - Skin Skin exam: Present: warm, dry, intact ED Course Vital Signs 05/09/21 13:52 Temperature 98 F Pulse Rate 76 Respiratory 15 Rate Blood Pressure 135/74 [Right] O2 Sat by Pulse 98 Oximetry ED Medical Decision Making - Medical Decision Making Patient is a 40-year-old male presents emergency room complaints of neck and upper back pain that began 2 days ago. He denies any fall or injury. 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 He denies any fever, nausea, vomiting, diarrhea, numbness, weakness. He denies any steroid use, history of cancer, IV drug use. Patient denies any past medical history. He denies any medication allergies. He states he needs an excuse to return to work tomorrow. Vitals are stable. On exam:bilateral c- spine paraspinal muscular ttp, no midline c-spine ttp, no step offs, no deformities, bilateral t-spine paraspinal muscular ttp, no midline t-spine or l- spine ttp, no step offs, no deformities, no focal neuro deficits, ambulatory out difficulty. Patient has no red flag warning signs, no trauma, no unexplained weight loss, no fever, no IV drug use, no neuro deficits, age is not greater than 50, steroid use, history of cancer. Patient has no meningeal signs. Patient given prescription for medications. Advised patient Please use medication as prescribed. May use ice pack, heating pad, rest, Epsom bath. Do not use heat or ice while using [place] balm ointment. Follow-up with your primary care doctor. Follow-up with a chargeback specialist if symptoms are not improving. Return to emergency room for any new or worsening symptoms Critical care attestation.: If time is entered above; I have spent that time in minutes in the direct care of this critically ill patient, excluding procedure time. ED Disposition Clinical Impression: Neck pain, Upper back pain Disposition: 01 HOME / SELF CARE / HOMELESS Is pt being admited?: No Does the pt Need Aspirin: No Condition: Stable Instructions: Muscle Strain, [id number] Additional Instructions: Please use medication as prescribed. May use ice pack, heating pad, rest, Epsom bath. Do not use heat or ice while using [place] balm ointment. Follow-up with your primary care doctor. Follow-up with a chargeback specialist if symptoms are not improving. Return to emergency room for any new or worsening symptoms Prescriptions: Naproxen 375 mg PO BID PRN #20 tab PRN Reason: pain methOCARBAMOL [Robaxin TAB] 500 mg PO BID PRN #20 tab PRN Reason: muscle spasm/pain Menthol/Camphor [[place] Ointment] 1 applicatio TP BID #18 g Referrals: KELVIN DOZIER MD [Staff Physician] - 3-5 Days [facility] [Provider Group] - 3-5 Days HERO OLIVARES II, MD [Staff Physician] - 3-5 Days (chargeback specialist ) Forms: Work/School Release Form(ED) Time of Disposition: 16:15 Print Language: MALAGASY
== END 2021-05-09 16:30 | disposition home or self-care (01) ==
LOC: ED 13:11
DX: M54.2 Cervicalgia (principal); M54.6 Pain in thoracic spine; J45.909 Unspecified asthma, uncomplicated; F17.200 Nicotine dependence, unspecified, uncomplicated
CPT/HCPCS: 99281

== ENCOUNTER 2021-06-06 10:04 | Emergency (ER) | payer SELFPAY ==
[2021-06-06 11:19] VITALS: BP 120/68
== END 2021-06-06 12:00 | disposition home or self-care (01) ==
LOC: ED 10:04
DX: K59.00 Constipation, unspecified (principal); J45.909 Unspecified asthma, uncomplicated; F17.200 Nicotine dependence, unspecified, uncomplicated; Z79.899 Other long term (current) drug therapy
CPT/HCPCS: 74018; 99283

== ENCOUNTER 2021-07-30 18:15 | Emergency (ER) | payer OTHER ==
[2021-07-30 20:40] VITALS: BP 121/71
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
== END 2021-07-30 23:51 | disposition home or self-care (01) ==
LOC: ED 18:15
DX: S56.911A Strain of unspecified muscles, fascia and tendons at forearm level, right arm, initial encounter (principal); F17.200 Nicotine dependence, unspecified, uncomplicated; J45.909 Unspecified asthma, uncomplicated; V89.2XXA Person injured in unspecified motor-vehicle accident, traffic, initial encounter; Y93.89 Activity, other specified; Y92.488 Other paved roadways as the place of occurrence of the external cause; Y99.8 Other external cause status
CPT/HCPCS: 99282

== ENCOUNTER 2021-12-16 16:15 | Emergency (ER) | payer SELFPAY ==
[2021-12-16 17:55] VITALS: BP 132/79
--- NOTE | 2021-12-16 18:24 | XRay Report ---
RIGHT ANKLE 3 VIEW(S) INDICATION / CLINICAL INFORMATION: pain, swelling COMPARISON: None available. FINDINGS: BONES / JOINT(S): No acute fracture or subluxation. No significant arthritis. There is a 9 mm os trig onum. Mild enthesopathic changes at the posterior calcaneus. SOFT TISSUES: Mild soft tissue swelling about the ankle. ADDITIONAL FINDINGS: None. IMPRESSION: 1. No acute osseous abnormalities. Signer Name: Pio Sultana MD Signed: 12/16/2021 6:20 PM Workstation Name: [email or web address]
--- NOTE | 2021-12-16 18:45 | Emergency Department Report ---
ED General Adult HPI - General Chief complaint: Extremity Injury, Lower Stated complaint: ANKLE SPRAIN Time Seen by Provider: 12/16/21 18:43 Source: patient Mode of arrival: Ambulatory Limitations: No Limitations - History of Present Illness Initial comments: 41-year-old male with no significant past medical history reports to the ER with complaints of right ankle pain and swelling. Patient reports last night while at work he experienced excruciating pain in his right ankle with movement. Patient reports he recently sprained his ankle about 4 5 days ago due to stepping off a curb. Patient reports no other acute signs or symptoms at this time. Severity scale (0 -10): 7 - Related Data Previous Rx's Medication Instructions Recorded Last Taken Type traMADoL [Ultram 50 MG tab] 50 mg PO Q6HR PRN #15 tablet 01/12/14 01/14/14 Rx Acetaminophen/Codeine [Tylenol #3] 1 tab PO BID #7 tablet 07/30/14 08/23/14 Rx predniSONE [Deltasone] 20 mg PO BID #10 tab 10/03/16 Unknown Rx Bismuth Subsalicylate 10 mg PO QID PRN #1 udc 04/11/17 Unknown Rx [Pepto-Bismol] Famotidine [Pepcid] 20 mg PO BID PRN #1 bottle 04/11/17 Unknown Rx Ondansetron [Zofran Odt] 4 mg PO Q8HR PRN #10 tab.rapdis 04/11/17 Unknown Rx Aspirin [Aspirin BABY CHEW TAB] 81 mg PO QDAY #30 tab.chew 12/05/18 Unknown Rx Famotidine [Pepcid] 20 mg PO BID #30 tablet 12/05/18 Unknown Rx Ondansetron [Zofran Odt] 4 mg PO Q8HR PRN #20 tab.rapdis 12/05/18 Unknown Rx Acetaminophen/Codeine [Tylenol 1 tab PO Q6H PRN #10 tab 02/26/19 Unknown Rx /Codeine # 3 tab] Ciprofloxacin HCl [Ciprofloxacin 500 mg PO Q12HR 10 Days #20 tab 02/26/19 Unknown Rx TAB] metroNIDAZOLE [Flagyl TAB] 500 mg PO Q8H 10 Days #30 tab 02/26/19 Unknown Rx Albuterol Mdi (or & Nicu Only) 1 puff IH Q4-6H PRN #1 inha 05/16/20 Unknown Rx [ProAir HFA Inhaler] Azithromycin [Zithromax] 500 mg PO QDAY #3 tablet 05/16/20 Unknown Rx Benzonatate [Tessalon Perles] 100 mg PO Q8HR #20 capsule 05/16/20 Unknown Rx predniSONE [Deltasone] 20 mg PO QDAY #5 tab 05/16/20 Unknown Rx Ibuprofen [Motrin 800 MG tab] 800 mg PO Q8HR PRN #15 tablet 05/24/20 Unknown Rx Albuterol Mdi (or & Nicu Only) 2 puff IH QID PRN #1 inhalation 01/20/21 Unknown Rx [ProAir HFA Inhaler] Amoxicillin/Potassium Clav 1 each PO BID #14 tablet 01/20/21 Unknown Rx [Augmentin 875-125 Tablet] Ibuprofen [Motrin 800 MG tab] 800 mg PO Q8HR PRN #20 tablet 01/20/21 Unknown Rx Menthol/Camphor [[place] 1 applicatio TP BID #18 g 05/09/21 Unknown Rx Ointment] Naproxen 375 mg PO BID PRN #20 tab 05/09/21 Unknown Rx methOCARBAMOL [Robaxin TAB] 500 mg PO BID PRN #20 tab 05/09/21 Unknown Rx Polyethylene Glycol 3350 [Miralax] 119 gm PO DAILY #1 bottle 06/06/21 Unknown Rx Ibuprofen [Motrin] 800 mg PO Q8HR PRN #30 tablet 07/30/21 Unknown Rx Ibuprofen [Motrin] 800 mg PO Q8HR PRN 6 Days #18 12/16/21 Unknown Rx tablet methOCARBAMOL [Robaxin TAB] 500 mg PO BID PRN 6 Days #12 tab 12/16/21 Unknown Rx Allergies Allergy/AdvReac Type Severity Reaction Status Date / Time No Known Allergies Allergy Verified 05/24/20 11:51 ED Review of Systems ROS: Stated complaint: ANKLE SPRAIN Other details as noted in HPI Comment: All other systems reviewed and negative Musculoskeletal: joint swelling (Right ankle) ED Past Medical Hx - Past Medical History Previous Medical History?: Yes Hx Asthma: Yes Additional medical history: Previous abscess - Social History Smoking Status: Current Every Day Smoker Substance Use Type: None - Medications Home Medications: Home Medications Medication Instructions Recorded Confirmed Last Taken Type traMADoL [Ultram 50 MG tab] 50 mg PO Q6HR PRN #15 tablet 01/12/14 09/13/14 01/14/14 Rx Acetaminophen/Codeine [Tylenol #3] 1 tab PO BID #7 tablet 07/30/14 09/13/14 08/23/14 Rx predniSONE [Deltasone] 20 mg PO BID #10 tab 10/03/16 Unknown Rx Bismuth Subsalicylate 10 mg PO QID PRN #1 udc 04/11/17 Unknown Rx [Pepto-Bismol] Famotidine [Pepcid] 20 mg PO BID PRN #1 bottle 04/11/17 Unknown Rx Ondansetron [Zofran Odt] 4 mg PO Q8HR PRN #10 tab.rapdis 04/11/17 Unknown Rx Aspirin [Aspirin BABY CHEW TAB] 81 mg PO QDAY #30 tab.chew 12/05/18 Unknown Rx Famotidine [Pepcid] 20 mg PO BID #30 tablet 12/05/18 Unknown Rx Ondansetron [Zofran Odt] 4 mg PO Q8HR PRN #20 tab.rapdis 12/05/18 Unknown Rx Acetaminophen/Codeine [Tylenol 1 tab PO Q6H PRN #10 tab 02/26/19 Unknown Rx /Codeine # 3 tab] Ciprofloxacin HCl [Ciprofloxacin 500 mg PO Q12HR 10 Days #20 tab 02/26/19 Unknown Rx TAB] metroNIDAZOLE [Flagyl TAB] 500 mg PO Q8H 10 Days #30 tab 02/26/19 Unknown Rx Albuterol Mdi (or & Nicu Only) 1 puff IH Q4-6H PRN #1 inha 05/16/20 Unknown Rx [ProAir HFA Inhaler] Azithromycin [Zithromax] 500 mg PO QDAY #3 tablet 05/16/20 Unknown Rx Benzonatate [Tessalon Perles] 100 mg PO Q8HR #20 capsule 05/16/20 Unknown Rx predniSONE [Deltasone] 20 mg PO QDAY #5 tab 05/16/20 Unknown Rx Ibuprofen [Motrin 800 MG tab] 800 mg PO Q8HR PRN #15 tablet 05/24/20 Unknown Rx Albuterol Mdi (or & Nicu Only) 2 puff IH QID PRN #1 inhalation 01/20/21 Unknown Rx [ProAir HFA Inhaler] Amoxicillin/Potassium Clav 1 each PO BID #14 tablet 10/02/21 Unknown Rx [Augmentin 875-125 Tablet] Ibuprofen [Motrin 800 MG tab] 800 mg PO Q8HR PRN #20 tablet 01/20/21 Unknown Rx Menthol/Camphor [[place] 1 applicatio TP BID #18 g 05/09/21 Unknown Rx Ointment] Naproxen 375 mg PO BID PRN #20 tab 05/09/21 Unknown Rx methOCARBAMOL [Robaxin TAB] 500 mg PO BID PRN #20 tab 05/09/21 Unknown Rx Polyethylene Glycol 3350 [Miralax] 119 gm PO DAILY #1 bottle 06/06/21 Unknown Rx Ibuprofen [Motrin] 800 mg PO Q8HR PRN #30 tablet 07/30/21 Unknown Rx Ibuprofen [Motrin] 800 mg PO Q8HR PRN 6 Days #18 12/16/21 Unknown Rx tablet methOCARBAMOL [Robaxin TAB] 500 mg PO BID PRN 6 Days #12 tab 12/16/21 Unknown Rx ED Physical Exam - General Limitations: No Limitations General appearance: alert, in no apparent distress - Head Head exam: Present: atraumatic, normocephalic - Eye Eye exam: Present: normal appearance - ENT ENT exam: Present: mucous membranes moist - Neck Neck exam: Present: normal inspection - Respiratory Respiratory exam: Present: normal lung sounds bilaterally. Absent: respiratory distress - Cardiovascular Cardiovascular Exam: Present: regular rate, normal rhythm. Absent: systolic murmur, diastolic murmur, rubs, gallop - GI/Abdominal GI/Abdominal exam: Present: soft, normal bowel sounds - Rectal Rectal exam: Present: deferred - Extremities Exam Extremities exam: Present: normal inspection - Expanded Lower Extremity Exam Right Ankle exam: Present: full ROM, tenderness, swelling. Absent: ecchymosis, deformity, dislocation - Back Exam Back exam: Present: normal inspection - Neurological Exam Neurological exam: Present: alert, oriented X3 - Psychiatric Psychiatric exam: Present: normal affect, normal mood - Skin Skin exam: Present: warm, dry, intact, normal color. Absent: rash ED Course Vital Signs 12/16/21 17:50 Temperature 98.6 F Pulse Rate 70 Respiratory 18 Rate Blood Pressure 132/79 [Left] O2 Sat by Pulse 98 Oximetry ED Medical Decision Making - Radiology Data Radiology results: report reviewed, image reviewed [facility] [address] [place] [address] XRay Report Signed Patient: CAMILLE HARRIS MR#: [id number] [birth year] : 1980 Acct:[id number] Age/Sex: 41 / M ADM Date: 12/16/21 Loc: ED Attending Dr: Ordering Physician: ED MD ADELITA Date of Service: 12/16/21 Procedure(s): XR ankle 3+V RT Accession Number(s): [id number] cc: ED MD ADELITA Fluoro Time In Minutes: RIGHT ANKLE 3 VIEW(S) INDICATION / CLINICAL INFORMATION: pain, swelling COMPARISON: None available. FINDINGS: BONES / JOINT(S): No acute fracture or subluxation. No significant arthritis. There is a 9 mm os trigonum. Mild enthesopathic changes at the posterior calcaneus. SOFT TISSUES: Mild soft tissue swelling about the ankle. ADDITIONAL FINDINGS: None. IMPRESSION: 1. No acute osseous abnormalities. Signer Name: Marilu Sultana MD Signed: 12/16/2021 6:20 PM Workstation Name: [id number] Transcribed By: Dictated By: MARILU SULTANA MD Electronically Authenticated By: MARILU SLUTANA MD Signed Date/Time: 12/16/211819 DD/ 16 TD/TT: - Medical Decision Making 41-year-old male reports to the ER with right ankle pain and swelling after recently spraining his ankle about 3 to 4 days ago. Patient reports while at work last night he had increasing pain. On physical exam there is right ankle swelling with tenderness noted. No dislocation no deformity noted. Range of motion is intact. X-rays negative for any acute fracture or dislocation. Patient informed to keep right ankle wrapped with Atul wrap as well as keep elevated ice and compression and have some rest. Patient agrees with plan of care and verbalized understanding. Patient stable for discharge home. Patient informed if symptoms are to get worse to report back to the ER. Vital Signs 12/16/21 17:50 Temperature 98.6 F Pulse Rate 70 Respiratory 18 Rate Blood Pressure 132/79 [Left] O2 Sat by Pulse 98 Oximetry Critical care attestation.: If time is entered above; I have spent that time in minutes in the direct care of this critically ill patient, excluding procedure time. ED Disposition Clinical Impression: Right ankle sprain Qualifiers: Encounter type: initial encounter Involved ligament of ankle: other ligament Qualified Code(s): S93.491A - Sprain of other ligament of right ankle, initial encounter Disposition: HOME / SELF CARE / HOMELESS Is pt being admited?: No Condition: Stable Instructions: Ankle Sprain, [id number], How to Use Cold Therapy Prescriptions: Ibuprofen [Motrin] 800 mg PO Q8HR PRN 6 Days #18 tablet PRN Reason: Pain , Severe (7-10) methOCARBAMOL [Robaxin TAB] 500 mg PO BID PRN 6 Days #12 tab PRN Reason: muscle spasm Forms: Work/School Release Form(ED)
== END 2021-12-16 19:29 | disposition home or self-care (01) ==
LOC: ED 16:15
DX: S93.401A Sprain of unspecified ligament of right ankle, initial encounter (principal); J45.909 Unspecified asthma, uncomplicated; F17.200 Nicotine dependence, unspecified, uncomplicated; W22.8XXA Striking against or struck by other objects, initial encounter; Y93.89 Activity, other specified; Y92.89 Other specified places as the place of occurrence of the external cause; Y99.8 Other external cause status
CPT/HCPCS: 99282; 99283